=== PATIENT | male | born 1965 | race Caucasian/White ===

== ENCOUNTER 2016-07-28 20:11 | Emergency (ER) | payer OTHER ==
[~2016-07-28] VITALS: Ht 182.9 cm; Wt 152.0 kg
[~2016-07-28 20:11] MED LIST: CITA40TA12 PO; CLINDAMYCIN HCL1 GM PO; CLON0.5T PO; DULO20CA PO; ENOX30DI SQ; FURO20TA3 PO; GABA-586 PO; GABA25PO15 MC; HYDR-971 PO; INSU100I27 SQ; INSU100V8 SQ; LISI-334 PO; LISI10TA2 PO; LISI1POW MC; LISI1POW PO; OXYC10TA PO; OXYC20TA PO; PRAZ2CAP2 PO; PROVENTIL HFA6.7 GM IH; QUET300T6 PO; RIVA10TA PO; RIVA15TA PO; TRAM50TA PO; WARF1TAB7 PO
[2016-07-28 20:53] LABS: BASO % 1 % (0-3); EOS % 3 % (0-3); HEMATOCRIT 42.4 % (39.0-53.0); HEMOGLOBIN 14.2 g/dL (13.0-17.5); LYMPH # 2.8 x10^3/uL (1.0-4.8); LYMPH % 35 % (24-48); MEAN CORPUSCULAR HEMOGLOBIN 28 pg (25-35); MEAN CORPUSCULAR HGB CONC 33 g/dL (31-37); MEAN CORPUSCULAR VOLUME 84 fL (79-100); MONO % 9 % (0-9); NEUT % 53 % (31-73); PLATELET COUNT 258 x10^3/uL (140-400); RED BLOOD COUNT 5.06 x10^6/uL (4.30-5.70); RED CELL DISTRIBUTION WIDTH 17.3 % (11.5-14.5); WHITE BLOOD COUNT 8.1 x10^3/uL (4.0-11.0)
[2016-07-28] MEDS ORDERED: MORPHINE SULFATE 4 MG/ML DISP.SYRIN. IV/SQ PRN (21:00)
[2016-07-28 21:03] LABS: INR 1.7 (0.8-1.1); PROTHROMBIN TIME PATIENT 18.6 SEC (11.7-14.0)
[2016-07-28 21:10] LABS: CALCIUM 9.1 mg/dL (8.5-10.1); CREATININE 1.3 mg/dL (0.7-1.3); GFR 57.7; MAGNESIUM 1.9 mg/dL (1.8-2.4); POTASSIUM 4.2 mmol/L (3.5-5.1)
--- NOTE | 2016-07-28 21:13 | PHYS DOC ---
Past Medical History Past Medical History: Anxiety, DVT, Hypertension, Kidney Infection, [place], Vascular Disease Additional Past Medical Histor: TBI; PTSD; neuropathy Past Surgical History: Cholecystectomy, Knee Replacement, Other Additional Past Surgical Histo: hernia, Alcohol Use: None Drug Use: None Adult General Chief Complaint Chief Complaint: CHEST PAIN HPI HPI Patient is a 51 year old male who presents by EMS for anxiety worsening throughout today leading to difficulty breathing, general shakiness and chest tightness. States he has had these symptoms with prior anxiety attacks. States these symptoms are different that prior pain associated with CAD/[place]. He no longer has prn Valium that he usually takes for this. He had one nitroglycerin by EMS and his symptoms are improving. He no longer has difficulty breathing or chest tightness, but he still has remaining anxiety. He was prior in his normal health. Started at rest. He denies cough, fever or chills, hemoptysis, leg pain or swelling, abdominal pain, lightheadedness, dizziness, vision changes, Review of Systems Review of Systems Constitutional: Denies fever or chills [] Eyes: Denies change in visual acuity, redness, or eye pain [] HENT: Denies nasal congestion or sore throat [] Respiratory: Denies cough [] Cardiovascular: No additional information not addressed in HPI [] GI: Denies abdominal pain, nausea, vomiting, bloody stools or diarrhea [] : Denies dysuria or hematuria [] Musculoskeletal: Denies back pain or joint pain [] Integument: Denies rash or skin lesions [] Neurologic: Denies headache, focal weakness or sensory changes [] Endocrine: Denies polyuria or polydipsia [] Current Medications Current Medications Current Medications Medications (Trade) Dose Ordered Sig/Krys Start Time Stop Time Status Last Admin Dose Admin Diazepam (Valium) 2 mg 1X ONCE 07/28/16 21:15 07/28/16 21:16 DC Morphine Sulfate 4 mg PRN Q15MIN PRN 07/28/16 21:00 07/29/16 20:59 Allergies Allergies Allergies Coded Allergies Type Severity Reaction Last Updated Verified Sulfa (Sulfonamide Antibiotics) Allergy Severe sob 03/18/16 Yes ketorolac tromethamine Allergy Intermediate hives 03/18/16 Yes I S O L A T I O N *CONTACT* Allergy Unknown 06/15/15 Yes Physical Exam Physical Exam Constitutional: Well developed, well nourished, no acute distress, non-toxic appearance. [] HENT: Normocephalic, atraumatic, bilateral external ears normal, oropharynx moist, no oral exudates, nose normal. [] Eyes: PERRLA, EOMI, conjunctiva normal, no discharge. [] Neck: Normal range of motion, no tenderness, supple, no stridor. [] Cardiovascular:Heart rate regular rhythm, no murmur [] Lungs & Thorax: Bilateral breath sounds clear to auscultation [] Abdomen: Bowel sounds normal, soft, no tenderness, no masses, no pulsatile masses. [] Skin: Warm, dry, no erythema, no rash. [] Back: No tenderness, no CVA tenderness. [] Extremities: No tenderness, no cyanosis, no clubbing, ROM intact, no edema. [] Neurologic: Alert and oriented X 3, normal motor function, normal sensory function, no focal deficits noted. [] Psychologic: Affect normal, judgement normal, mood normal. [] Current Patient Data Vital Signs Vital Signs Date Time Temp Pulse Resp B/P Pulse Ox O2 Delivery O2 Flow Rate FiO2 07/28/16 20:18 98.1 108 18 123/66 94 Room Air 98.1 Lab Values Laboratory Tests Test 07/28/16 20:20 07/28/16 21:18 White Blood Count 8.1x10^3/uL (4.0-11.0) Red Blood Count 5.06x10^6/uL (4.30-5.70) Hemoglobin 14.2g/dL (13.0-17.5) Hematocrit 42.4% (39.0-53.0) Mean Corpuscular Volume 84fL (79-100) Mean Corpuscular Hemoglobin 28pg (25-35) Mean Corpuscular Hemoglobin Concent 33g/dL (31-37) Red Cell Distribution Width 17.3% (11.5-14.5) H Platelet Count 258x10^3/uL (140-400) Neutrophils (%) (Auto) 53% (31-73) Lymphocytes (%) (Auto) 35% (24-48) Monocytes (%) (Auto) 9% (0-9) Eosinophils (%) (Auto) 3% (0-3) Basophils (%) (Auto) 1% (0-3) Neutrophils # (Auto) 4.3x10^3uL (1.8-7.7) Lymphocytes # (Auto) 2.8x10^3/uL (1.0-4.8) Monocytes # (Auto) 0.7x10^3/uL (0.0-1.1) Eosinophils # (Auto) 0.2x10^3/uL (0.0-0.7) Basophils # (Auto) 0.0x10^3/uL (0.0-0.2) Prothrombin Time 18.6SEC (11.7-14.0) H Prothrombin Time INR 1.7 (0.8-1.1) H Sodium Level 143mmol/L (136-145) Potassium Level 4.2mmol/L (3.5-5.1) Chloride Level 105mmol/L (98-107) Carbon Dioxide Level 26mmol/L (21-32) Anion Gap 12 (6-14) Blood Urea Nitrogen 16mg/dL (8-26) Creatinine 1.3mg/dL (0.7-1.3) Estimated GFR (Cockcroft-Gault) 57.7 Glucose Level 136mg/dL (70-99) H Calcium Level 9.1mg/dL (8.5-10.1) Magnesium Level 1.9mg/dL (1.8-2.4) Troponin I Quantitative < 0.017ng/mL (0.000-0.055) GU-Ppm-K-Type Natriuretic Peptide 18pg/mL (0-124) Urine Opiates Screen Neg (NEG) Urine Methadone Screen Neg (NEG) Urine Barbiturates Neg (NEG) Urine Phencyclidine Screen Neg (NEG) Urine Amphetamine/Methamphetamine Neg (NEG) Urine Benzodiazepines Screen Neg (NEG) Urine Cocaine Screen Neg (NEG) Urine Cannabinoids Screen Neg (NEG) Urine Ethyl Alcohol Neg (NEG) Laboratory Tests 07/28/16 20:20 Laboratory Tests 07/28/16 20:20 EKG EKG EKG as interpreted by me as sinus tachycardia, rate 109, no ST-T changes, normal intervals, no ectopy Radiology/Procedures Radiology/Procedures Chest xray as interpreted by me with no acute cardiopulmonary disease process Course & Med Decision Making Course & Med Decision Making Pertinent Labs and Imaging studies reviewed. (See chart for details) Workup is unremarkable. He feels better after medications and would like to go home. Encouraged close follow up with his PCP, Psychiatrist, and Atm Mechanic. Return precautions given. He understands and agrees with plan. Dragon Disclaimer Dragon Disclaimer This electronic medical record was generated, in whole or in part, using a voice recognition dictation system. Departure Departure Impression: Primary Impression: Anxiety Additional Impression: Chest pain Disposition: HOME, SELF-CARE Condition: STABLE Referrals: NO PCP (PCP) Patient Instructions: Anxiety and Panic Attacks, [id number] Additional Instructions: Follow up with your primary care doctor and psychiatrist. Return for any concerns. Problem Qualifiers Additional Impression: Chest pain Chest pain type: unspecified Qualified Code: R07.9 - Chest pain, unspecified Swapnil TESFAYE MD Jul 28, 2016 21:13
[2016-07-28] MEDS ORDERED: DIAZEPAM 2 MG TABLET PO ONE (21:15)
[2016-07-28 21:31] LABS: BARBITURATES NEG (NEG); BENZODIAZEPINES NEG (NEG); CANNABINOIDS NEG (NEG); COCAINE NEG (NEG); ETHANOL, URINE NEG (NEG); METHADONE NEG (NEG); OPIATES NEG (NEG); PHENCYCLIDINE NEG (NEG)
[2016-07-28 22:06] VITALS: BP 111/61
--- NOTE | 2016-07-29 06:27 | EKG ---
[facility] [address] [place] [address] Test Date: 2016-07-28 Test Time: 20:19:36 Pat Name: LEONEL GODWIN Department: Room: Gender: Assistant Pastry Chef: : 1965 Requested By: Swapnil TESFAYE Order Number: [id number] Reading MD: Gisela Live Measurements Intervals [place] Rate: 109 P: 28 [place]: 122 QRS: 26 QRSD: 90 T: 34 QT: 330 QTc: 446 Interpretive Statements SINUS TACHYCARDIA OTHERWISE NORMAL ECG Electronically Signed On 07-31-2016 20:10:11 COUNTER MAKER by Gisela Live
--- NOTE | 2016-07-29 07:36 | RAD ---
EXAM: Chest 2 views. HISTORY: Left chest pain and shortness of breath. COMPARISON: 06/14/2015. FINDINGS: Frontal and lateral views of the chest are obtained. Embolization coils project over the left lower lobe. There are no confluent infiltrates. There is no pneumothorax or pleural effusion. The heart is not enlarged. IMPRESSION: 1. No confluent infiltrates. Embolization coils in the left lower lobe.
== END 2016-07-28 21:55 | disposition home or self-care (01) ==
LOC: ER 20:11
DX: F41.9 Anxiety disorder, unspecified (principal); R07.89 Other chest pain; I10 Essential (primary) hypertension; I25.2 Old myocardial infarction; F43.10 Post-traumatic stress disorder, unspecified; G62.9 Polyneuropathy, unspecified; Z90.49 Acquired absence of other specified parts of digestive tract; Z96.659 Presence of unspecified artificial knee joint; Z87.820 Personal history of traumatic brain injury; Z88.2 Allergy status to sulfonamides; Z91.041 Radiographic dye allergy status; Z86.718 Personal history of other venous thrombosis and embolism; Z88.8 Allergy status to other drugs, medicaments and biological substances
CPT/HCPCS: 36415; 71020; 80048; 83735; 83880; 84484; 85027; 85610; 93005; 99285; G0481

== ENCOUNTER 2016-07-28 23:00 | Emergency (ER) | payer OTHER ==
[~2016-07-28] VITALS: Ht 182.9 cm; Wt 152.0 kg
[2016-07-28] MEDS ORDERED: LORAZEPAM 1 MG TABLET. PO ONE (23:30)
--- NOTE | 2016-07-28 23:35 | PHYS DOC ---
Past Medical History Past Medical History: Anxiety, CAD, COPD, Depression, Diabetes-Type II, DVT, Hypertension, Kidney Infection, [place], Seizure, Vascular Disease Additional Past Medical Histor: TBI; PTSD; neuropathy, SI attempts in past, meth abuse Past Surgical History: Appendectomy, Cholecystectomy, Knee Replacement, Other Additional Past Surgical Histo: hernia, left knee Alcohol Use: None Drug Use: Methamphetamine Social History Narrative: meth abuse in past, clean for 3 weeks Adult General Chief Complaint Chief Complaint: SUICDAL IDEATION HPI HPI This is a 51-year-old male who presents with ongoing panic attacks and suicidal thoughts. He states he has overdose in the past and is now having thoughts to harm himself again. Patient was just seen earlier today with ongoing chest pain and panic attack and had a full workup that was essentially unremarkable and was given Valium with minimal to no relief. Currently the patient states he decided to check back in because he is afraid he would harm himself. Currently he states his chest pain has improved but he is still having significant anxiety and panic attack. Review of Systems Review of Systems Constitutional: Denies fever or chills [] Eyes: Denies change in visual acuity, redness, or eye pain [] HENT: Denies nasal congestion or sore throat [] Respiratory: Denies cough or shortness of breath [] Cardiovascular: No additional information not addressed in HPI [] GI: Denies abdominal pain, nausea, vomiting, bloody stools or diarrhea [] : Denies dysuria or hematuria [] Musculoskeletal: Denies back pain or joint pain [] Integument: Denies rash or skin lesions [] Neurologic: Denies headache, focal weakness or sensory changes [] Endocrine: Denies polyuria or polydipsia [] Current Medications Current Medications Current Medications Medications (Trade) Dose Ordered Sig/Krys Start Time Stop Time Status Last Admin Dose Admin Lorazepam (Ativan) 0.5 mg 1X ONCE 07/28/16 23:30 07/28/16 23:31 DC 07/28/16 23:34 0.5 MG Allergies Allergies Allergies Coded Allergies Type Severity Reaction Last Updated Verified Sulfa (Sulfonamide Antibiotics) Allergy Severe sob 03/18/16 Yes ketorolac tromethamine Allergy Intermediate hives 03/18/16 Yes I S O L A T I O N *CONTACT* Allergy Unknown 06/15/15 Yes Physical Exam Physical Exam Constitutional: Well developed, well nourished, mild distress, non-toxic appearance. [] HENT: Normocephalic, atraumatic, bilateral external ears normal, oropharynx moist, no oral exudates, nose normal. [] Eyes: PERRLA, EOMI, conjunctiva normal, no discharge. [] Neck: Normal range of motion, no tenderness, supple, no stridor. [] Cardiovascular:Heart rate regular rhythm, no murmur [] Lungs & Thorax: Bilateral breath sounds clear to auscultation [] Abdomen: Bowel sounds normal, soft, no tenderness, no masses, no pulsatile masses. [] Skin: Warm, dry, no erythema, no rash. [] Back: No tenderness, no CVA tenderness. [] Extremities: No tenderness, no cyanosis, no clubbing, ROM intact, no edema. [] Neurologic: Alert and oriented X 3, normal motor function, normal sensory function, no focal deficits noted. [] Psychologic: Affect normal, judgement normal, mood anxious. [] Current Patient Data Vital Signs Vital Signs Date Time Temp Pulse Resp B/P Pulse Ox O2 Delivery O2 Flow Rate FiO2 07/29/16 01:05 104 16 98/52 97 Room Air 07/28/16 23:24 98.0 98.0 EKG EKG [] Radiology/Procedures Radiology/Procedures [] Course & Med Decision Making Course & Med Decision Making Pertinent Labs and Imaging studies reviewed. (See chart for details) This 50-year-old male who's had a full workup already earlier in the department will receive a full psychiatric assessment from our psychiatric assessment team. I will give him a low-dose of Ativan for his ongoing panic attack. There is no indication at this time to repeat any laboratory testing as he was just discharged with a full workup earlier several hours ago. Psychiatric assessment team agreed that the patient is suicidal and will arrange transport to [facility] for suicidal intervention. [facility] transport was arranged and the patient was discharged without incident after assessment was arranged at that facility for his ongoing suicidal ideation. Dragon Disclaimer Dragon Disclaimer This electronic medical record was generated, in whole or in part, using a voice recognition dictation system. Departure Departure Impression: Primary Impression: Suicidal behavior Disposition: 02 TRANSFER T-[facility] Admitting Physician: Other Condition: STABLE Referrals: NO PCP (PCP) Patient Instructions: Suicidal Feelings, How to Help Yourself Additional Instructions: Please proceed directly to your psychiatric facility to receive help for your suicidal thoughts. Return to the ER immediately if you develop any new symptoms. TONY HOWARD DO Jul 28, 2016 23:35
[2016-07-29 01:05] VITALS: BP 98/52
== END 2016-07-29 01:39 | disposition short-term general hospital (02) ==
LOC: ER 23:00
DX: R45.851 Suicidal ideations (principal); R07.9 Chest pain, unspecified; F41.9 Anxiety disorder, unspecified; I25.10 Atherosclerotic heart disease of native coronary artery without angina pectoris; J44.9 Chronic obstructive pulmonary disease, unspecified; F32.9 Major depressive disorder, single episode, unspecified; E11.9 Type 2 diabetes mellitus without complications; I10 Essential (primary) hypertension; I25.2 Old myocardial infarction; E11.40 Type 2 diabetes mellitus with diabetic neuropathy, unspecified; Z96.659 Presence of unspecified artificial knee joint; Z90.49 Acquired absence of other specified parts of digestive tract; F43.10 Post-traumatic stress disorder, unspecified; Z86.718 Personal history of other venous thrombosis and embolism; F15.10 Other stimulant abuse, uncomplicated; Z87.820 Personal history of traumatic brain injury; Z88.2 Allergy status to sulfonamides; Z88.8 Allergy status to other drugs, medicaments and biological substances; Z91.041 Radiographic dye allergy status
CPT/HCPCS: 99285-25

== ENCOUNTER 2016-08-05 07:48 | Emergency (ER) | payer OTHER ==
[~2016-08-05] VITALS: Ht 182.9 cm; Wt 152.0 kg
[2016-08-05 07:48] VITALS: BP 110/61
[2016-08-05] MEDS ORDERED: MORPHINE SULFATE 10 MG/ML VIAL. IM ONE (08:30)
--- NOTE | 2016-08-05 08:38 | PHYS DOC ---
Past Medical History Past Medical History: Anxiety, CAD, COPD, Depression, Diabetes-Type II, DVT, Hypertension, Kidney Infection, [place], Seizure, Vascular Disease Additional Past Medical Histor: TBI; PTSD; neuropathy, SI attempts in past, meth abuse, UMBILICAL HERNIA Past Surgical History: Appendectomy, Cholecystectomy, Knee Replacement, Other Additional Past Surgical Histo: hernia, left knee Alcohol Use: None Drug Use: Methamphetamine Social History Narrative: 30 DAYS CLEAN OF 08/05/16 Adult General Chief Complaint Chief Complaint: ABDOMINAL PAIN HPI HPI Patient is a 51 year old male with history of diabetes type 2, hypertension, DVTs, depression, ventral hernia with multiple surgeries for ventral hernia repair, who presents today with 6/10 abdominal pain over his ventral hernia that began yesterday. Patient denies any nausea vomiting. Patient states this is a chronic problem. He states he normally takes oxycodone but he is out of oxycodone. He states he normally follows up with [facility] in [place]. Patient states he is currently staying at the [facility]. He is requesting something for pain. Review of Systems Review of Systems Constitutional: Denies fever or chills [] Eyes: Denies change in visual acuity, redness, or eye pain [] HENT: Denies nasal congestion or sore throat [] Respiratory: Denies cough or shortness of breath [] Cardiovascular: No additional information not addressed in HPI [] GI: Abdominal pain : Denies dysuria or hematuria [] Musculoskeletal: Denies back pain or joint pain [] Integument: Denies rash or skin lesions [] Neurologic: Denies headache, focal weakness or sensory changes [] Endocrine: Denies polyuria or polydipsia [] Current Medications Current Medications Current Medications Medications (Trade) Dose Ordered Sig/[facility] Start Time Stop Time Status Last Admin Dose Admin Morphine Sulfate 5 mg 1X ONCE 08/05/16 08:30 08/05/16 08:31 DC 08/05/16 09:35 5 MG Allergies Allergies Allergies Coded Allergies Type Severity Reaction Last Updated Verified Sulfa (Sulfonamide Antibiotics) Allergy Severe sob 03/18/16 Yes ketorolac tromethamine Allergy Intermediate hives 03/18/16 Yes Physical Exam Physical Exam Constitutional: Well developed, well nourished, no acute distress, non-toxic appearance. [] HENT: Normocephalic, atraumatic, bilateral external ears normal, oropharynx moist, no oral exudates, nose normal. [] Eyes: PERRLA, EOMI, conjunctiva normal, no discharge. [] Neck: Normal range of motion, no tenderness, supple, no stridor. [] Cardiovascular:Heart rate regular rhythm, no murmur [] Lungs & Thorax: Bilateral breath sounds clear to auscultation [] Abdomen: Obese abdomen, multiple incisions noted midline abdomen, ventral hernia noted on the left abdomen, the hernia is easily reducible. It only occurs when patient is sitting up. Bowel sounds normal, soft, no tenderness, no masses, no pulsatile masses. [] Skin: Warm, dry, no erythema, no rash. [] Back: No tenderness, no CVA tenderness. [] Extremities: No tenderness, no cyanosis, no clubbing, ROM intact, no edema. [] Neurologic: Alert and oriented X 3, normal motor function, normal sensory function, no focal deficits noted. [] Psychologic: Affect normal, judgement normal, mood normal. [] Current Patient Data Vital Signs Vital Signs Date Time Temp Pulse Resp B/P Pulse Ox O2 Delivery O2 Flow Rate FiO2 08/05/16 07:48 97.9 110 18 110/61 96 Room Air 97.9 Lab Values Laboratory Tests Test 08/05/16 08:50 White Blood Count 7.5x10^3/uL (4.0-11.0) Red Blood Count 5.51x10^6/uL (4.30-5.70) Hemoglobin 15.3g/dL (13.0-17.5) Hematocrit 46.0% (39.0-53.0) Mean Corpuscular Volume 83fL (79-100) Mean Corpuscular Hemoglobin 28pg (25-35) Mean Corpuscular Hemoglobin Concent 33g/dL (31-37) Red Cell Distribution Width 17.3% (11.5-14.5) H Platelet Count 302x10^3/uL (140-400) Neutrophils (%) (Auto) 63% (31-73) Lymphocytes (%) (Auto) 26% (24-48) Monocytes (%) (Auto) 8% (0-9) Eosinophils (%) (Auto) 2% (0-3) Basophils (%) (Auto) 1% (0-3) Neutrophils # (Auto) 4.7x10^3uL (1.8-7.7) Lymphocytes # (Auto) 2.0x10^3/uL (1.0-4.8) Monocytes # (Auto) 0.6x10^3/uL (0.0-1.1) Eosinophils # (Auto) 0.2x10^3/uL (0.0-0.7) Basophils # (Auto) 0.1x10^3/uL (0.0-0.2) Sodium Level 138mmol/L (136-145) Potassium Level 4.3mmol/L (3.5-5.1) Chloride Level 105mmol/L (98-107) Carbon Dioxide Level 24mmol/L (21-32) Anion Gap 9 (6-14) Blood Urea Nitrogen 12mg/dL (8-26) Creatinine 1.0mg/dL (0.7-1.3) Estimated GFR (Cockcroft-Gault) 78.2 BUN/Creatinine Ratio 12 (6-20) Glucose Level 111mg/dL (70-99) H Calcium Level 9.2mg/dL (8.5-10.1) Total Bilirubin 0.3mg/dL (0.2-1.0) Aspartate Amino Transferase (AST) 20U/L (15-37) Alanine Aminotransferase (ALT) 23U/L (16-63) Alkaline Phosphatase 92U/L (46-116) Total Protein 7.7g/dL (6.4-8.2) Albumin 3.3g/dL (3.4-5.0) L Albumin/Globulin Ratio 0.8 (1.0-1.7) L Lipase 140U/L (73-393) Laboratory Tests 08/05/16 08:50 Laboratory Tests 08/05/16 08:50 EKG EKG [] Radiology/Procedures Radiology/Procedures [] Course & Med Decision Making Course & Med Decision Making Pertinent Labs and Imaging studies reviewed. (See chart for details) Patient with history of ventral hernia with multiple surgeries for ventral hernia repair, who presents today with 6/10 abdominal pain over his ventral hernia that began yesterday,patient states this is a chronic problem and he is out of oxycodone. Informed patient I will not give him any oxycodone from the ED today because he is not following up with a primary care doctor or general surgeon. Also narcotics will increase his risk of constipation worsening his condition. His labs are negative, acute abdominal series has no acute findings. Patient was discharged with dicyclomine and Compazine. I did provide him a general surgeon for follow-up as soon as possible. Doctor's list was also provided. Provided return precautions. Discharged in stable condition. Dragon Disclaimer Dragon Disclaimer This electronic medical record was generated, in whole or in part, using a voice recognition dictation system. Departure Departure Impression: Primary Impression: Abdominal pain Additional Impression: Ventral hernia, recurrent Disposition: HOME, SELF-CARE Condition: STABLE Referrals: NO PCP (PCP) ANA MARIA FLORES MD See him in one week Patient Instructions: Hernia Additional Instructions: You were seen for chronic abdominal pain due to a ventral hernia. We highly recommend you follow-up with the general surgeon provided as soon as possible. Avoid taking narcotics because they will cause you constipation and worsen your pain. Scripts Prochlorperazine Maleate (Compazine)10 Mg [id number] Mg PO TID PRN NAUSEA #20 TAB Prov:BOONE LOMBARDI APRN 08/05/16 Dicyclomine Hcl 20 Mg Tablet1 Tab PO TID #30 TAB Ref 1 Prov:BOONE LOMBARDI APRN 08/05/16 Problem Qualifiers Primary Impression: Abdominal pain Abdominal location: unspecified location Qualified Code: R10.9 - Unspecified abdominal pain BOONE LOMBARDI APRN Aug 05, 2016 08:38
[2016-08-05 09:15] LABS: CALCIUM 9.2 mg/dL (8.5-10.1); POTASSIUM 4.3 mmol/L (3.5-5.1)
[2016-08-05 09:20] LABS: ALBUMIN 3.3 g/dL (3.4-5.0); ALBUMIN/GLOBULIN RATIO 0.8 (1.0-1.7); GFR 78.2; TOTAL BILIRUBIN 0.3 mg/dL (0.2-1.0); TOTAL PROTEIN 7.7 g/dL (6.4-8.2)
[2016-08-05 09:23] LABS: BASO # 0.1 x10^3/uL (0.0-0.2); BASO % 1 % (0-3); EOS % 2 % (0-3); HEMOGLOBIN 15.3 g/dL (13.0-17.5); LYMPH % 26 % (24-48); MEAN CORPUSCULAR HEMOGLOBIN 28 pg (25-35); MEAN CORPUSCULAR HGB CONC 33 g/dL (31-37); MEAN CORPUSCULAR VOLUME 83 fL (79-100); MONO % 8 % (0-9); NEUT % 63 % (31-73); PLATELET COUNT 302 x10^3/uL (140-400); RED BLOOD COUNT 5.51 x10^6/uL (4.30-5.70); RED CELL DISTRIBUTION WIDTH 17.3 % (11.5-14.5); WHITE BLOOD COUNT 7.5 x10^3/uL (4.0-11.0)
--- NOTE | 2016-08-05 09:33 | RAD ---
Acute abdomen series with chest, 3 views, 08/05/2016: History: Abdominal pain, hernia Comparison is made to a study from 08/25/2015. The abdominal gas pattern is unremarkable without evidence of obstruction. No free air is seen in the abdomen. There are surgical clips in the right upper quadrant. Numerous radiopacities overlying the lower abdomen are presumably related to a surgical mesh from a prior hernia repair. An inferior vena cava filter is in place at the L2-3 level. There is no evidence of organomegaly. Scattered degenerative changes are evident in the spine. The heart size and pulmonary vascularity are normal. No pulmonary infiltrates are seen. Embolization coils are again noted in the left lower chest. IMPRESSION: No acute abdominal abnormality is detected.
[2016-08-05] MEDS ORDERED: PROC10TA57 PO (09:48)
[2016-08-05] MEDS ORDERED: DICY20TA3 PO (09:48)
== END 2016-08-05 10:00 | disposition home or self-care (01) ==
LOC: ER 07:48
DX: K43.2 Incisional hernia without obstruction or gangrene (principal); E66.9 Obesity, unspecified; E11.40 Type 2 diabetes mellitus with diabetic neuropathy, unspecified; F41.9 Anxiety disorder, unspecified; I11.9 Hypertensive heart disease without heart failure; I25.10 Atherosclerotic heart disease of native coronary artery without angina pectoris; J44.9 Chronic obstructive pulmonary disease, unspecified; F32.9 Major depressive disorder, single episode, unspecified; I25.2 Old myocardial infarction; F43.10 Post-traumatic stress disorder, unspecified; F15.10 Other stimulant abuse, uncomplicated; Z90.49 Acquired absence of other specified parts of digestive tract; Z96.652 Presence of left artificial knee joint; Z87.820 Personal history of traumatic brain injury; Z86.718 Personal history of other venous thrombosis and embolism; Z68.42 Body mass index [BMI] 45.0-49.9, adult; Z88.8 Allergy status to other drugs, medicaments and biological substances; Z88.2 Allergy status to sulfonamides
CPT/HCPCS: 36415; 74022; 80053; 83690; 85027; 96372; 99285; J2270

== ENCOUNTER 2016-08-30 12:11 | Emergency (ER) | payer OTHER ==
[~2016-08-30] VITALS: Ht 182.9 cm; Wt 149.7 kg
[~2016-08-30 12:11] MED LIST changes: +DICY20TA3 PO; +PROC10TA57 PO
[2016-08-30] MEDS ORDERED: HYDROCODONE/APAP 5/325MG TABLET. PO ONE (13:00)
--- NOTE | 2016-08-30 13:37 | PHYS DOC ---
Past Medical History Past Medical History: Anxiety, CAD, COPD, Depression, Diabetes-Type II, DVT, Hypertension, Kidney Infection, MS, Seizure, Vascular Disease Additional Past Medical Histor: TBI; PTSD; neuropathy, SI attempts in past, meth abuse, UMBILICAL HERNIA Past Surgical History: Appendectomy, Cholecystectomy, Knee Replacement, Other Additional Past Surgical Histo: hernia, left knee Alcohol Use: None Drug Use: Methamphetamine Social History Narrative: pt denies 08/30/16, last use 2 months ago Adult General Chief Complaint Chief Complaint: LOWER EXTREMITY SWELLING HPI HPI Patient is a 51 year old male who presents with left leg pain and swelling over the past few days. States is achy, constant pain to medial leg and calf. He has been off of Xarelto for 1 month due to not following up with his PCP to get refill; he is taking this for prior DVT. She also mentions a small exertion that is formed on each ya. He denies injury to areas, fever or chills , discoloration otherwise. He denies dyspnea, orthopnea, chest pain, cough, hemoptysis, palpitations, lightheadedness. Review of Systems Review of Systems Constitutional: Denies fever or chills [] Eyes: Denies change in visual acuity, redness, or eye pain [] HENT: Denies nasal congestion or sore throat [] Respiratory: Denies cough or shortness of breath [] Cardiovascular: No additional information not addressed in HPI [] GI: Denies abdominal pain, nausea, vomiting, bloody stools or diarrhea [] : Denies dysuria or hematuria [] Musculoskeletal: Denies back pain or joint pain [] Integument: Denies rash or skin lesions [] Neurologic: Denies headache, focal weakness or sensory changes [] Endocrine: Denies polyuria or polydipsia [] Current Medications Current Medications Current Medications Medications (Trade) Dose Ordered Sig/Krys Start Time Stop Time Status Last Admin Dose Admin Acetaminophen/ Hydrocodone Bitart (Lortab 5/325) 2 tab 1X ONCE 08/30/16 13:00 08/30/16 13:01 DC 08/30/16 13:13 2 TAB Allergies Allergies Allergies Coded Allergies Type Severity Reaction Last Updated Verified Sulfa (Sulfonamide Antibiotics) Allergy Severe sob 03/18/16 Yes ketorolac tromethamine Allergy Intermediate hives 03/18/16 Yes Physical Exam Physical Exam Constitutional: Well developed, well nourished, no acute distress, non-toxic appearance. [] HENT: Normocephalic, atraumatic, bilateral external ears normal, oropharynx moist, nose normal. [] Eyes: PERRLA, EOMI. [] Neck: Normal range of motion, supple. [] Cardiovascular:Heart rate regular rhythm [] Lungs & Thorax: Bilateral breath sounds clear to auscultation [] Abdomen: Bowel sounds normal, soft, no tenderness. [] Skin: Warm, dry, no erythema, no rash. [] Back: Normal ROM. [] Extremities: Bilateral lower extremities with dark skin color changes concerning for chronic venous stasis, has L>R 1+ pitting edema, bilateral L>R tenderness, right proximal ya with 1.5cm circular eschar and left proximal ya with 1cm circular eschar without surrounding redness/induration/crepitance/ fluctuance/warmth; equal 2+ dp pulses; sensation intact to light touch bilaterally; normal ROM at all joints, normal strength Neurologic: Alert and oriented X 3, normal motor function, normal sensory function, no focal deficits noted. [] Psychologic: Affect normal, judgement normal, mood normal. [] Current Patient Data Vital Signs Vital Signs Date Time Temp Pulse Resp B/P Pulse Ox O2 Delivery O2 Flow Rate FiO2 08/30/16 12:22 97.8 108 20 114/71 97 Room Air 97.8 Radiology/Procedures Radiology/Procedures US venous doppler LLE IMPRESSION: Nonocclusive thrombus in the distal left superficial femoral vein extending into the popliteal vein. This may represent residual thrombus from the previous episode of DVT on 06/14/2015, although recurrent DVT cannot be excluded. DICTATED and SIGNED BY: LISSETT MALONEY MD DATE: 08/30/16 5606 Course & Med Decision Making Course & Med Decision Making Pertinent Labs and Imaging studies reviewed. (See chart for details) Has acute or chronic DVT seen. Will restart xarelto and encouraged him to follow up with his PCP for further therapy and medication refills. Return precautions given. He understands and agrees with plan. Dragon Disclaimer Dragon Disclaimer This electronic medical record was generated, in whole or in part, using a voice recognition dictation system. Departure Departure Impression: Primary Impression: Pain of left lower leg Additional Impression: Chronic deep vein thrombosis (DVT) Disposition: 01 HOME, SELF-CARE Condition: STABLE Referrals: NO PCP (PCP) Patient Instructions: Deep Vein Thrombosis Additional Instructions: Take xarelto for your chronic DVT. Follow up with your primary care doctor within 1 week. Return for any concerns. Scripts Rivaroxaban (Xarelto)20 Mg Cpxzar30 Mg PO DAILY #10 TAB Prov:Swapnil TESFAYE MD 08/30/16 Problem Qualifiers Additional Impression: Chronic deep vein thrombosis (DVT) DVT location: lower extremity Affected thrombotic vein of extremity: unspecified lower extremity distal vein Laterality: left Qualified Code: I82.5Z2 - Chronic embolism and thrombosis of unspecified deep veins of left distal lower extremity Swapnil TESFAYE MD Aug 30, 2016 13:37
[2016-08-30] MEDS ORDERED: RIVA20TA2 PO (13:58)
--- NOTE | 2016-08-30 14:04 | RAD ---
Left lower extremity venous ultrasound, 08/30/2016: History: Left leg pain and swelling Duplex evaluation of the deep veins in the left lower extremity was performed including grayscale, color-flow and spectral Doppler analysis. Comparison is made to a study from 06/14/2015. The left common femoral vein is patent. The left deep femoral vein and the superficial femoral vein in the proximal and mid thigh are unremarkable. In the inferior aspect of the left thigh there is a small amount of nonocclusive mural thrombus extending into the left popliteal vein. The deep veins in the left calf are not well visualized, however, no calf DVT is seen. On the previous study of 06/14/2015 there was thrombus in the proximal left superficial femoral vein which has subsequently resolved. The distal left superficial femoral and popliteal veins were not visualized on the previous study due to the presence of a splint. IMPRESSION: Nonocclusive thrombus in the distal left superficial femoral vein extending into the popliteal vein. This may represent residual thrombus from the previous episode of DVT on 06/14/2015, although recurrent DVT cannot be excluded.
== END 2016-08-30 14:13 | disposition home or self-care (01) ==
LOC: ER 12:11
DX: I82.512 Chronic embolism and thrombosis of left femoral vein (principal); F41.9 Anxiety disorder, unspecified; I25.10 Atherosclerotic heart disease of native coronary artery without angina pectoris; J44.9 Chronic obstructive pulmonary disease, unspecified; F32.9 Major depressive disorder, single episode, unspecified; E11.40 Type 2 diabetes mellitus with diabetic neuropathy, unspecified; I10 Essential (primary) hypertension; I25.2 Old myocardial infarction; F43.10 Post-traumatic stress disorder, unspecified; F15.10 Other stimulant abuse, uncomplicated; Z88.8 Allergy status to other drugs, medicaments and biological substances; Z87.820 Personal history of traumatic brain injury; Z88.2 Allergy status to sulfonamides
CPT/HCPCS: 93971; 99284-25

== ENCOUNTER 2016-09-09 17:31 | Observation (INO) | payer OTHER ==
[~2016-09-09] VITALS: Ht 182.9 cm; Wt 154.2 kg
[~2016-09-09 17:31] MED LIST changes: +ASPIRIN CHEWABLE 81 MG TABLET. PO ONE; +RIVA20TA2 PO
--- NOTE | 2016-09-09 17:58 | PHYS DOC ---
Past Medical History Past Medical History: Anxiety, CAD, COPD, Depression, Diabetes-Type II, DVT, Hypertension, Kidney Infection, ND, Seizure, Vascular Disease Additional Past Medical Histor: TBI; PTSD; neuropathy, SI attempts in past, meth abuse, UMBILICAL HERNIA Past Surgical History: Appendectomy, Cholecystectomy, Knee Replacement, Other Additional Past Surgical Histo: hernia, left knee Alcohol Use: None Drug Use: Methamphetamine Adult General Chief Complaint Chief Complaint: CHEST PAIN HPI HPI 51-year-old male with history of an ND and DVT in the past presents emergency Department with chest pain that he describes as sharp over the left side of his chest. It is nonradiating. It is moderate. He recently is undergoing drug rehabilitation therapy for methamphetamine use. His last drug use was approximately 3 or 4 months ago. He denies cocaine use. He denies any unilateral leg swelling. He is on xerolto for DVT and took his medication yesterday. He otherwise has hypertension and diabetes. Review of systems is negative for hemoptysis, he has mild exertional shortness of breath. Negative for cough fevers chills. He denies abdominal pain nausea or vomiting. He denies diaphoresis. All other review of systems is negative unless otherwise noted in history of present illness. Review of Systems Review of Systems SEE ABOVE. Current Medications Current Medications Current Medications Medications (Trade) Dose Ordered Sig/Krys Start Time Stop Time Status Last Admin Dose Admin Aspirin (Children'S Aspirin) 324 mg 1X ONCE 09/09/16 08:00 09/09/16 17:47 DC Allergies Allergies Allergies Coded Allergies Type Severity Reaction Last Updated Verified Sulfa (Sulfonamide Antibiotics) Allergy Severe sob 03/18/16 Yes ketorolac tromethamine Allergy Intermediate hives 03/18/16 Yes Physical Exam Physical Exam Constitutional: Well developed, well nourished, no acute distress, non-toxic appearance. HENT: Normocephalic, atraumatic, bilateral external ears normal, oropharynx moist, no oral exudates, nose normal. [] Eyes: PERRLA, EOMI, conjunctiva normal, no discharge. [] Neck: Normal range of motion, no tenderness, supple, no stridor. [] Cardiovascular:Heart rate regular rhythm, no murmur Lungs & Thorax: Bilateral breath sounds clear to auscultation [] Abdomen: Bowel sounds normal, soft, no tenderness, no masses, no pulsatile masses. Skin: Warm, dry, no erythema, no rash. [] Back: No tenderness, no CVA tenderness. [] Extremities: No tenderness, no cyanosis, no clubbing, ROM intact, no edema. Neurologic: Alert and oriented X 3, normal motor function, normal sensory function, no focal deficits noted. Psychologic: Affect normal, judgement normal, mood normal. [] Current Patient Data Vital Signs Vital Signs Date Time Temp Pulse Resp B/P Pulse Ox O2 Delivery O2 Flow Rate FiO2 09/09/16 18:54 90 20 119/61 98 Room Air 09/09/16 17:40 98.2 98.2 Lab Values Laboratory Tests Test 09/09/16 17:47 White Blood Count 10.3x10^3/uL (4.0-11.0) Red Blood Count 5.12x10^6/uL (4.30-5.70) Hemoglobin 14.5g/dL (13.0-17.5) Hematocrit 42.6% (39.0-53.0) Mean Corpuscular Volume 83fL (79-100) Mean Corpuscular Hemoglobin 28pg (25-35) Mean Corpuscular Hemoglobin Concent 34g/dL (31-37) Red Cell Distribution Width 17.0% (11.5-14.5) H Platelet Count 351x10^3/uL (140-400) Neutrophils (%) (Auto) 61% (31-73) Lymphocytes (%) (Auto) 26% (24-48) Monocytes (%) (Auto) 9% (0-9) Eosinophils (%) (Auto) 3% (0-3) Basophils (%) (Auto) 1% (0-3) Neutrophils # (Auto) 6.3x10^3uL (1.8-7.7) Lymphocytes # (Auto) 2.7x10^3/uL (1.0-4.8) Monocytes # (Auto) 0.9x10^3/uL (0.0-1.1) Eosinophils # (Auto) 0.3x10^3/uL (0.0-0.7) Basophils # (Auto) 0.1x10^3/uL (0.0-0.2) Sodium Level 138mmol/L (136-145) Potassium Level 4.1mmol/L (3.5-5.1) Chloride Level 104mmol/L (98-107) Carbon Dioxide Level 25mmol/L (21-32) Anion Gap 9 (6-14) Blood Urea Nitrogen 20mg/dL (8-26) Creatinine 1.1mg/dL (0.7-1.3) Estimated GFR (Cockcroft-Gault) 70.0 Glucose Level 148mg/dL (70-99) H Calcium Level 8.9mg/dL (8.5-10.1) Total Bilirubin 0.3mg/dL (0.2-1.0) Direct Bilirubin 0.1mg/dL (0.0-0.2) Aspartate Amino Transferase (AST) 23U/L (15-37) Alanine Aminotransferase (ALT) 27U/L (16-63) Alkaline Phosphatase 81U/L (46-116) Troponin I Quantitative < 0.017ng/mL (0.000-0.055) LO-Ofg-L-Type Natriuretic Peptide 147pg/mL (0-124) H Total Protein 7.3g/dL (6.4-8.2) Albumin 3.1g/dL (3.4-5.0) L Lipase 131U/L (73-393) Laboratory Tests 09/09/16 17:47 Laboratory Tests 09/09/16 17:47 EKG EKG EKG shows sinus rhythm with a regular rate. [place] is leftward. Intervals are within normal limits. ST segments are congruent. [] Radiology/Procedures Radiology/Procedures []X-ray reviewed by myself shows no obvious infiltrate or pneumothorax. Course & Med Decision Making Course & Med Decision Making Pertinent Labs and Imaging studies reviewed. (See chart for details) [] 51-year-old male presenting to the emergency department today with chest pain. Patient reports a history of cardiac stenting. Vital signs afebrile. Otherwise unremarkable. The patient received aspirin prior to arrival. EKG and troponin negative. Chest x-ray shows no obvious infiltrate or pneumothorax. Workup essentially unremarkable in the emergency department. The patient was then admitted for chest pain rule out. I discussed the case with Dr. clancy at 7: 30 PM at which point the patient's care was transferred. Dragon Disclaimer Dragon Disclaimer This electronic medical record was generated, in whole or in part, using a voice recognition dictation system. Departure Departure Impression: Primary Impression: Chest pain Disposition: 09 ADMITTED INPATIENT Admitting Physician: Alicja Clancy Condition: STABLE Referrals: NO PCP (PCP) Problem Qualifiers Primary Impression: Chest pain Chest pain type: unspecified Qualified Code: R07.9 - Chest pain, unspecified AKANKSHA PHELPS MD Sep 09, 2016 17:58
[2016-09-09 18:00] LABS: BASO # 0.1 x10^3/uL (0.0-0.2); BASO % 1 % (0-3); EOS % 3 % (0-3); HEMATOCRIT 42.6 % (39.0-53.0); HEMOGLOBIN 14.5 g/dL (13.0-17.5); LYMPH # 2.7 x10^3/uL (1.0-4.8); LYMPH % 26 % (24-48); MEAN CORPUSCULAR HEMOGLOBIN 28 pg (25-35); MEAN CORPUSCULAR HGB CONC 34 g/dL (31-37); MEAN CORPUSCULAR VOLUME 83 fL (79-100); MONO % 9 % (0-9); NEUT % 61 % (31-73); PLATELET COUNT 351 x10^3/uL (140-400); RED BLOOD COUNT 5.12 x10^6/uL (4.30-5.70); WHITE BLOOD COUNT 10.3 x10^3/uL (4.0-11.0)
[2016-09-09 18:09] LABS: CALCIUM 8.9 mg/dL (8.5-10.1); CREATININE 1.1 mg/dL (0.7-1.3); POTASSIUM 4.1 mmol/L (3.5-5.1)
[2016-09-09 18:15] LABS: ALBUMIN 3.1 g/dL (3.4-5.0); DIRECT BILIRUBIN 0.1 mg/dL (0.0-0.2); TOTAL BILIRUBIN 0.3 mg/dL (0.2-1.0); TOTAL PROTEIN 7.3 g/dL (6.4-8.2)
[2016-09-09] MEDS ORDERED: ONDANSETRON PF 4 MG/2 ML VIAL. IV PRN (19:30)
[2016-09-09] MEDS ORDERED: NITROGLYCERIN SUBLINGUAL 0.4 MG BOTTLE OF 25. SL PRN (19:30)
[2016-09-09] MEDS ORDERED: IOHEXOL 300 MG/ML 75 ML VIAL IV ONE (19:45)
[2016-09-09] MEDS ORDERED: CONTRAST GIVEN MC PRN (19:45)
[2016-09-09] MEDS: MORPHINE SULFATE 2 MG/ML DISP.SYRIN. IV PRN ×2 (20:52→22:36)
--- NOTE | 2016-09-09 21:22 | RAD ---
PROCEDURE CTA of the chest with contrast (pulmonary embolism protocol) 09/09/2016 HISTORY Left-sided chest pain. History of DVT. TECHNIQUE After the intravenous administration 75 cc of Omnipaque 300, contiguous, 0.625 millimeter axial sections were obtained through the chest. 2 millimeter reconstructed axial and 3D MIP sagittal and coronal reconstructed images were obtained. One or more of the following individualized dose reduction techniques were utilized for this study: 1. Automated exposure control. 2. Adjustment of the mA and/or kV according to patient size. 3. Use of iterative reconstruction technique. FINDINGS Comparison study is dated 08/12/2015. There is suboptimal opacification of the pulmonary arteries with contrast limiting the sensitivity of this study. No obvious filling defect is seen. There is no definite CT evidence of pulmonary embolism. Mild atherosclerotic plaque formation is seen involving the thoracic aorta. Scattered coronary artery calcifications are seen. The thoracic aorta tapers normally. The heart is normal in size. Coils are seen within the left lower lobe, unchanged. Dependent subsegmental atelectasis is seen involving both lungs. No area of consolidation is seen. No pneumothorax or pleural effusion is noted. A 2 millimeter calcified granuloma is seen involving the right middle lobe. A 3.9 centimeter rounded mass is seen involving the left adrenal gland which likely represents an adrenal adenoma. It is unchanged. IMPRESSION There is no CT evidence of pulmonary embolism. Electronically signed by: Doug Dillard MD (Sep 09, 2016 21:21:11)
[2016-09-09] MEDS ORDERED: TRAZ100T12 PO (21:42)
[2016-09-09] MEDS ORDERED: QUET50TA5 PO (21:42)
[2016-09-09] MEDS ORDERED: DEXTROSE 50% 25 GM / 50ML DISP.SYRIN. IV PRN (22:15)
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
[2016-09-09] MEDS: QUEtiapine 25 MG TABLET. PO SCH (22:35)
[2016-09-09] MEDS: traZODone 100 MG TABLET. PO SCH (22:35)
[2016-09-09] MEDS: INSULIN DETEMIR 300 UNITS/3 ML INSULN.PEN. SQ SCH (22:41)
[2016-09-09 23:38] VITALS: BP 96/59
[2016-09-10] VITALS (7 sets, daily range): BP systolic 104–135; BP diastolic 54–70
[2016-09-10 05:24] LABS: BASO # 0.1 x10^3/uL (0.0-0.2); BASO % 1 % (0-3); EOS % 4 % (0-3); HEMATOCRIT 41.6 % (39.0-53.0); HEMOGLOBIN 13.6 g/dL (13.0-17.5); LYMPH # 2.5 x10^3/uL (1.0-4.8); LYMPH % 29 % (24-48); MEAN CORPUSCULAR HEMOGLOBIN 28 pg (25-35); MEAN CORPUSCULAR HGB CONC 33 g/dL (31-37); MEAN CORPUSCULAR VOLUME 85 fL (79-100); MONO % 10 % (0-9); NEUT % 56 % (31-73); PLATELET COUNT 286 x10^3/uL (140-400); RED BLOOD COUNT 4.88 x10^6/uL (4.30-5.70); RED CELL DISTRIBUTION WIDTH 17.1 % (11.5-14.5); WHITE BLOOD COUNT 8.6 x10^3/uL (4.0-11.0)
[2016-09-10 06:22] LABS: ALBUMIN 2.9 g/dL (3.4-5.0); ALBUMIN/GLOBULIN RATIO 0.8 (1.0-1.7); CALCIUM 8.6 mg/dL (8.5-10.1); GFR 78.2; POTASSIUM 4.2 mmol/L (3.5-5.1); TOTAL BILIRUBIN 0.2 mg/dL (0.2-1.0); TOTAL PROTEIN 6.7 g/dL (6.4-8.2)
[2016-09-10] MEDS: MORPHINE SULFATE 2 MG/ML DISP.SYRIN. IV PRN (07:35)
[2016-09-10] MEDS: INSULIN ASPART 300 UNITS/3 ML INSULN.PEN SQ SCH ×3 (08:00→17:00)
[2016-09-10] MEDS: CITALOPRAM 20 MG TABLET. PO SCH (08:24)
[2016-09-10] MEDS: FUROSEMIDE 20 MG TABLET PO SCH (08:25)
[2016-09-10] MEDS: LISINOPRIL 10 MG TABLET PO SCH (08:26)
--- NOTE | 2016-09-10 08:52 | ACF ---
Admit Criteria Forms Admit Criteria Forms Admit Criteria Forms CARDIOLOGY GRG Clinical Indications for Admission to Inpatient Care ( Place 'X' for any and all applicable criteria): Hospital admission is needed for appropriate care of the patient because of ANY ONE of the following (1): [ ] I. Hemodynamic instability as indicated by ALL of the following (1)(2)(3) (4)(5) [ ]a) Vital signs or other findings not as expected for chronic patient condition or baseline [ ]b) Instability indicated by ANY ONE of the following: [ ]i) Hypotension [ ]ii) Symptomatic Tachycardia unresponsive to treatment ( e.g., analgesia, fluids, sedation as indicated) [ ]iii) Inadequate perfusion indicated by ANY ONE of the following: [ ] 1) Lactic acidosis (> 2 mmol/L) [ ] 2) New abnormal capillary refill (> 3 seconds) [ ] 3) Reduced urine output [ ] 4) New altered mental status [ ]iv) Orthostatic vital sign changes unresponsive to treatment (e.g., fluids) [ ]v) IV inotropic or vasopressor medication required to maintain adequate blood pressure or perfusion [ ] II. Severe heart failure as indicated by ANY ONE of the following(17)(18) [ ]a) Respiratory distress [ ]b) Hypotension [ ]c) Anasarca (refractory to outpatient therapy) [ ]d) Cardiac arrhythmias of immediate concern [ ]e) Myocardial ischemia [ ] III. Cardiac arrhythmias or findings of immediate concern indicated by ANY ONE of the following (19)(20): [ ] a) Heart rhythms that are inherently dangerous or unstable indicated by ANY ONE of the following (21)(22)(23): [ ] i) Resuscitated ventricular fibrillation or cardiac arrest [ ] ii) Ventricular escape rhythm [ ] iii) Sustained ventricular tachycardia (30 seconds or more of ventricular rhythm at greater than 100 beats per minute) [ ] iv) Nonsustained ventricular tachycardia and ANY ONE of the following: [ ] 1) Suspected cardiac ischemia as cause or consequence of ventricular tachycardia [ ] 2) In setting of acute myocarditis [ ] b) Unstable cardiac conduction defects indicated by ANY ONE of the following(23)(24)(25) [ ] i) Type II second-degree atrioventricular block [ ]ii) Third-degree atrioventricular block [ ]iii) New-onset left bundle branch block with suspected myocardial ischemia [ ]c) Any heart rhythm and ANY ONE of the following (21)(22)(26)(27) (28) [ ] i) Continuous long-term ECG monitoring needed (e.g., initiation of drug requiring monitoring for more than 24 hours) [ ] ii) Patient has automatic implanted cardioverter defibrillator that is repeatedly firing, malfunctioning, or in need of immediate adjustment of settings beyond the scope of ambulatory or observation care [ ]d) Heart rhythms of concern due to ANY ONE of the following: [ ] i) Hypotension [ ] ii) Respiratory distress [ ] iii) Association with other significant symptoms (e.g., bradycardia with syncope or ongoing dizziness, supraventricular tachycardia with chest pain (14)(15)(17) [ ] IV. Monitoring for cardiac contusion beyond the scope of observation care needed [A](30)(31)(32) [ ] V. Surgical or device complication (e.g., valve replacement complication , pacemaker dysfunction) (35)(41)(44)(45)(46) [ ] . Inpatient palliative care needed. [B](49) Also use Inpatient Palliative Care Criteria [ ] VII. Nonbacterial thrombotic (marantic) endocarditis (36)(43)(47)(48) [X] VIII. Cardiology condition, symptom, or finding for which emergency and observation care has failed or are not considered appropriate. [ ] IX. Acute valvular disease requiring inpatient as indicated by ANY ONE of the following (41) [ ]a) Acute valvular regurgitation (42) [ ]b) Noninfectious valvulitis (43) [ ]c) Obstructive valve thrombosis [ ]d) Paravalvular leak [ ]e) Other significant valvular disorder remaining after emergency or observation level of care (as appropriate) [ ]X. Pericardial disease requiring inpatient treatment as indicated by ANY ONE of the following (33)(34)(35)(36)(37) [ ]a) Suspected tamponade (38)(39)(40) [ ]b) Hemopericardium [ ]c) Other significant pericardial disorder remaining after emergency or observation level of care (as appropriate) [ ] XI. Cardiac ischemia beyond scope of emergency and observation care. [ ] XII. Hypertension requiring inpatient treatment as indicated by ANY ONE of the following (6)(7)(8) [ ]a) SBP greater than 220 mm Hg or DBP greater than 120 mmHg despite treatment [ ]b) SBP greater than 140 mm Hg or DBP greater than 100 mm Hg with evidence of acute end organ damage as indicated by ANY ONE of the following [ ] i) Encephalopathy [ ] ii) Acute renal failure as indicated by new onset of ANY ONE of the following (9)(10)(11)(12)(13) [ ]1) 3-fold rise in serum creatinine from baseline [ ]2) Serum creatinine greater than 4 mg/dL ( 354 micromoles/L) with acute rise greater than 0.5 mg/dL (44.2 micromoles/L) [ ]3) Reduction of more than 75% in estimated glomerular filtration rate from baseline [ ]4) Estimated glomerular filtration rate less than 35 mL/min/1.73m2 (0.59 mL/sec/1.73m2) in child up to 18 years of age [ ]5) Cessation of urine output indicated by ALL of the following [ ]A. Adequate volume status [ ]B. Inadequate urine output as indicated by ANY ONE of the following [ ]a. Urine output less than 0.3 mL/kg/hr for 24 hours [ ]b. Anuria (urine output less than 0.1 mL/kg/hr) for 12 hours [ ] iii) Aortic dissection [ ] iv) Myocardial Ischemia [ ] v) Left ventricular heart failure [ ]vi) Retinal Hemorrhage [ ]vii) Other significant finding [ ]c) Hypertension in child requiring inpatient treatment as indicated by ALL of the following(14)(15)(16) [ ] i) Outpatient treatment not effective, not available, or not appropriate [ ]ii) SBP or DBP greater than 95th percentile for age [ ]iii) Evidence of acute end organ damage as indicated by ANY ONE of the following [ ]1) Altered mental status [ ]2) Acute renal failure as indicated by new onset of ANY ONE of the following(9)(10)(11)(12)(13) [ ]A. 3-fold rise in serum creatinine from baseline [ ]B. Serum creatinine greater than 4 mg/dL (354 micromoles/L) with acute rise greater than 0.5 mg/dL (44.2 micromoles/L) [ ]C. Reduction of more than 75% in estimated glomerular filtration rate from baseline [ ]D. Estimated glomerular filtration rate less than 35 mL/min/1.73m2 (0.59 mL/sec/1.73m2) in child up to 18 years of age [ ]E. Cessation of urine output indicated by ALL of the following [ ]a. Adequate volume status [ ]b. Inadequate urine output as indicated by ANY ONE of the following [ ]i) Urine output less than 0.3 mL/kg/hr for 24 hours [ ]ii) Anuria ( urine output less than 0.1 mL/kg/hr) for 12 hours [ ]3) Severe headache [ ]4) Visual disturbance [ ]5) Retinal hemorrhage [ ]6) Other significant finding [ ]XIII. Complications of transplanted heart indicated by ANY ONE of the following(61): [ ]a) Acute graft rejection requiring inpatient management (eg, intravenous immunosuppression)(62)(63) [ ]b) Acute graft heart failure indicated by ANY ONE of the following(64): [ ]i) Hemodynamic instability [ ]ii) Cardiac arrhythmias of immediate concern [ ]iii) Pulmonary edema that is very severe (eg, mechanical ventilation needed, imminent or likely, need for 100% oxygen to keep oxygen saturation above 90%) [ ]iv) Pulmonary edema that is persistent as indicated by ALL of the following: [ ]1) New need for oxygen therapy to keep oxygen saturation above 90% (or increased FiO2 need from baseline) [ ]2) Has not improved sufficiently with emergency department or observation care IV diuretics or other heart failure treatments[E] [ ]v) Altered mental status that is severe or persistent [ ]vi) Increased creatinine (new on laboratory test) with reduction of more than 50% in estimated glomerular filtration rate from baseline [ ]vii) Progressively (ongoing) rising creatinine (known from past laboratory test) with reduction of more than 25% in estimated glomerular filtration rate from baseline [ ]viii) Acute renal failure [ ]ix) Acute peripheral ischemia (eg, examination shows pulseless, cool, mottled, or cyanotic extremity) [ ]x) Pulmonary artery catheter monitoring needed [ ]xi) Other sign or symptom of heart failure requiring inpatient treatment (ie, too severe or not responsive to outpatient and observation care treatment) [ ]c) Infection requiring inpatient management (eg, Hemodynamic instability, need for intravenous antimicrobial treatment)(66)(67)(68)(69)(70) [ ]d) Cardiac allograft vasculopathy requiring inpatient management ( eg evidence of cardiac ischemia)(71) [ ]e) Other complication of transplanted heart (eg, stroke, severe pulmonary hypertension, severe valvular dysfunction) requiring inpatient management(72) The original [facility] content created by [facility] has been revised. The portions of the content which have been revised are identified through the use of italic text or in bold, and [facility] has neither reviewed nor approved the modified material. All other unmodified content is copyright [facility]. Please see references footnoted in the original [facility] [employer] edition 2016 NORMA RFASER Sep 10, 2016 08:52
[2016-09-10 08:57] LABS: BARBITURATES NEG (NEG); BENZODIAZEPINES NEG (NEG); CANNABINOIDS NEG (NEG); COCAINE NEG (NEG); METHADONE NEG (NEG); OPIATES POS (NEG); PHENCYCLIDINE NEG (NEG)
[2016-09-10 08:58] LABS: ETHANOL, URINE NEG (NEG)
[2016-09-10] MEDS ORDERED: RIVAROXABAN 10 MG TABLET. PO SCH (09:00)
--- NOTE | 2016-09-10 09:07 | RAD ---
Portable AP upright view CXR: Clinical indications: Chest pain in the left side. History of COPD and diabetes. Comparison: August 05, 2016.. Findings: No acute lung infiltrate or pleural effusion or pulmonary edema or lung mass or pneumothorax is seen. The heart size, pulmonary vasculature, mediastinum and both sammy are unremarkable. Again seen is a metallic foreign body overlying the left lower chest. Impression: No new radiographic abnormality is seen.
[2016-09-10] MEDS ORDERED: ONDANSETRON PF 4 MG/2 ML VIAL. IV PRN (09:26)
[2016-09-10] MEDS ORDERED: ACETAMINOPHEN 500 MG TABLET PO PRN (09:30)
--- NOTE | 2016-09-10 10:10 | EKG ---
[facility] [address] [place] [address] Test Date: 2016-09-09 Test Time: 17:37:37 Pat Name: LEONEL GODWIN Department: Room: Gender: M Prn Physical Therapist: : [id number] Requested By: AKANKSHA PHELPS Order Number: [id number] Reading MD: Measurements Intervals [place] Rate: 96 P: 62 CO: 138 QRS: 22 QRSD: 92 T: 54 QT: 354 QTc: 448 Interpretive Statements SINUS RHYTHM LEFT ATRIAL ABNORMALITY QRS(T) CONTOUR ABNORMALITY CONSIDER ANTEROLATERAL MYOCARDIAL DAMAGE RI6.01 No previous ECG available for comparison
--- NOTE | 2016-09-10 12:59 | PDOC2 ---
PREETI ADLER BULK SEALER 09/10/16 1259: CARDIAC CONSULT DATE OF CONSULT Date of Consult DATE: 09/10/16 TIME: 12:56 REASON FOR CONSULT Reason for Consult: chest pain HISTORY OF PRESENT ILLNESS HISTORY OF PRESENT ILLNESS Mr Mccoy is a 51 year old male with history of hypertension, PE. He presents with complaints of chest pain he describes as a left sided heaviness and ache that started several days ago. He reports discomfort onset is while up walking and resolves with about 5 minutes of resting. He denies radiation but does report associated dyspnea. He denies any prior history of this kind of discomfort. He complains of chronic swelling in his legs and of discomfort in both lower legs with walking that resolves with about 30 min of sitting down. He denies palpitations or congestive symptoms. PAST MEDICAL HISTORY Past Medical History Past Medical History with history of an ID and DVT, PE on Xarelto Cardiovascular: HTN, ID, Hyperlipidemia Pulmonary: Pulmonary embolus, Other Heme/Onc: Other Psych: Anxiety, PTSD, bipolar Musculoskeletal: Osteoarthritis Rheumatologic: Other Endocrine: Diabetes Past Surgical History Past Surgical History: Cholecystectomy, Hernia Repair, Total knee replacement Family History Family History: Coronary Artery Disease, Family History Unknown Social History ALCOHOL: none Drugs: None, Crystal meth PAST SURGICAL HISTORY Past Surgical History Past Surgical History: Cholecystectomy, Hernia Repair, Total knee replacement FAMILY HISTORY Family History Family History: Coronary Artery Disease, Family History Unknown SOCIAL HISTORY Social History Denies significant alcohol, history of methamphetamine use CURRENT MEDICATIONS CURRENT MEDICATIONS Current Medications Medications (Trade) Dose Ordered Sig/Krys Route PRN Reason Start Time Stop Time Status Last Admin Dose Admin Morphine Sulfate 2 mg PRN Q2HR PRN IV PAIN 09/09/16 19:30 09/10/16 19:29 09/10/16 07:35 Iohexol (Omnipaque 300 Mg/ml) 75 ml 1X ONCE IV 09/09/16 19:45 09/09/16 19:46 DC 09/09/16 20:32 Furosemide (Lasix) 10 mg DAILY08 PO 09/10/16 08:00 09/10/16 08:25 Insulin Detemir (Levemir) 20 units HS SQ 09/09/16 22:30 09/09/16 22:41 Lisinopril (Prinivil) 10 mg DAILY PO 09/10/16 09:00 09/10/16 08:26 Trazodone HCl (Desyrel) 100 mg QHS PO 09/09/16 22:30 09/09/16 22:35 Citalopram Hydrobromide (Celexa) 40 mg DAILY08 PO 09/10/16 08:00 09/10/16 08:24 Quetiapine Fumarate (SEROquel) 50 mg QHS PO 09/09/16 22:30 09/09/16 22:35 Rivaroxaban (Xarelto) 20 mg DAILY PO 09/10/16 09:00 09/10/16 08:24 ALLERGIES ALLERGIES: Coded Allergies: Sulfa (Sulfonamide Antibiotics) (Verified Allergy, Severe, sob, 03/18/16) ketorolac tromethamine (Verified Allergy, Intermediate, hives, 03/18/16) ROS Review of System as per HPI PHYSICAL EXAM General: Alert, Oriented X3, Cooperative, No acute distress HEENT: Atraumatic Lungs: Other (coarse, no crackles, rhonchi or wheezing) Heart: Normal S1, Normal S2, Other (no gallops, clicks or rubs) Abdomen: Normal bowel sounds Extremities: Other (bilateral lower extremities with chronic edema and changes consistant with venous insufficiency. Palpable pulses bilaterally) Neuro: Normal speech, Strength at 5/5 X4 ext Psych/Mental Status: Mental status NL, Mood NL VITALS VITALS Vital Signs Date Time Temp Pulse Resp B/P Pulse Ox O2 Delivery O2 Flow Rate FiO2 09/10/16 11:00 97.5 80 14 106/70 96 Room Air 97.5 09/10/16 08:05 98.0 LABS Lab: Laboratory Tests Test 09/09/16 17:47 09/09/16 21:06 09/09/16 23:25 09/10/16 00:40 White Blood Count 10.3x10^3/uL (4.0-11.0) Red Blood Count 5.12x10^6/uL (4.30-5.70) Hemoglobin 14.5g/dL (13.0-17.5) Hematocrit 42.6% (39.0-53.0) Mean Corpuscular Volume 83fL (79-100) Mean Corpuscular Hemoglobin 28pg (25-35) Mean Corpuscular Hemoglobin Concent 34g/dL (31-37) Red Cell Distribution Width 17.0% (11.5-14.5) Platelet Count 351x10^3/uL (140-400) Neutrophils (%) (Auto) 61% (31-73) Lymphocytes (%) (Auto) 26% (24-48) Monocytes (%) (Auto) 9% (0-9) Eosinophils (%) (Auto) 3% (0-3) Basophils (%) (Auto) 1% (0-3) Neutrophils # (Auto) 6.3x10^3uL (1.8-7.7) Lymphocytes # (Auto) 2.7x10^3/uL (1.0-4.8) Monocytes # (Auto) 0.9x10^3/uL (0.0-1.1) Eosinophils # (Auto) 0.3x10^3/uL (0.0-0.7) Basophils # (Auto) 0.1x10^3/uL (0.0-0.2) Sodium Level 138mmol/L (136-145) Potassium Level 4.1mmol/L (3.5-5.1) Chloride Level 104mmol/L (98-107) Carbon Dioxide Level 25mmol/L (21-32) Anion Gap 9 (6-14) Blood Urea Nitrogen 20mg/dL (8-26) Creatinine 1.1mg/dL (0.7-1.3) Estimated GFR (Cockcroft-Gault) 70.0 Glucose Level 148mg/dL (70-99) Calcium Level 8.9mg/dL (8.5-10.1) Total Bilirubin 0.3mg/dL (0.2-1.0) Direct Bilirubin 0.1mg/dL (0.0-0.2) Aspartate Amino Transf (AST/SGOT) 23U/L (15-37) Alanine Aminotransferase (ALT/SGPT) 27U/L (16-63) Alkaline Phosphatase 81U/L (46-116) Troponin I Quantitative < 0.017ng/mL (0.000-0.055) < 0.017ng/mL (0.000-0.055) BT-Gbv-I-Type Natriuretic Peptide 147pg/mL (0-124) Total Protein 7.3g/dL (6.4-8.2) Albumin 3.1g/dL (3.4-5.0) Lipase 131U/L (73-393) Glucose (Fingerstick) 100mg/dL (70-99) 116mg/dL (70-99) Test 09/10/16 04:44 09/10/16 07:44 09/10/16 08:00 09/10/16 11:20 White Blood Count 8.6x10^3/uL (4.0-11.0) Red Blood Count 4.88x10^6/uL (4.30-5.70) Hemoglobin 13.6g/dL (13.0-17.5) Hematocrit 41.6% (39.0-53.0) Mean Corpuscular Volume 85fL (79-100) Mean Corpuscular Hemoglobin 28pg (25-35) Mean Corpuscular Hemoglobin Concent 33g/dL (31-37) Red Cell Distribution Width 17.1% (11.5-14.5) Platelet Count 286x10^3/uL (140-400) Neutrophils (%) (Auto) 56% (31-73) Lymphocytes (%) (Auto) 29% (24-48) Monocytes (%) (Auto) 10% (0-9) Eosinophils (%) (Auto) 4% (0-3) Basophils (%) (Auto) 1% (0-3) Neutrophils # (Auto) 4.8x10^3uL (1.8-7.7) Lymphocytes # (Auto) 2.5x10^3/uL (1.0-4.8) Monocytes # (Auto) 0.9x10^3/uL (0.0-1.1) Eosinophils # (Auto) 0.4x10^3/uL (0.0-0.7) Basophils # (Auto) 0.1x10^3/uL (0.0-0.2) Sodium Level 139mmol/L (136-145) Potassium Level 4.2mmol/L (3.5-5.1) Chloride Level 105mmol/L (98-107) Carbon Dioxide Level 25mmol/L (21-32) Anion Gap 9 (6-14) Blood Urea Nitrogen 23mg/dL (8-26) Creatinine 1.0mg/dL (0.7-1.3) Estimated GFR (Cockcroft-Gault) 78.2 BUN/Creatinine Ratio 23 (6-20) Glucose Level 113mg/dL (70-99) Calcium Level 8.6mg/dL (8.5-10.1) Total Bilirubin 0.2mg/dL (0.2-1.0) Aspartate Amino Transf (AST/SGOT) 18U/L (15-37) Alanine Aminotransferase (ALT/SGPT) 24U/L (16-63) Alkaline Phosphatase 79U/L (46-116) Troponin I Quantitative < 0.017ng/mL (0.000-0.055) Total Protein 6.7g/dL (6.4-8.2) Albumin 2.9g/dL (3.4-5.0) Albumin/Globulin Ratio 0.8 (1.0-1.7) Triglycerides Level 122mg/dL (0-150) Cholesterol Level 139mg/dL (0-200) LDL Cholesterol, Calculated 69mg/dL (0-100) VLDL Cholesterol, Calculated 24mg/dL (0-40) HDL Cholesterol 46mg/dL (40-60) Cholesterol/HDL Ratio 3.0 Glucose (Fingerstick) 94mg/dL (70-99) 79mg/dL (70-99) Urine Opiates Screen Pos (NEG) Urine Methadone Screen Neg (NEG) Urine Barbiturates Neg (NEG) Urine Phencyclidine Screen Neg (NEG) Urine Amphetamine/Methamphetamine Neg (NEG) Urine Benzodiazepines Screen Neg (NEG) Urine Cocaine Screen Neg (NEG) Urine Cannabinoids Screen Neg (NEG) Urine Ethyl Alcohol Neg (NEG) IMAGES IMAGES CTA IMPRESSION There is no CT evidence of pulmonary embolism. EKG EKG sinus rhythm without any acute ischemic changes ASSESSMENT/PLAN ASSESSMENT/PLAN 1. Chest pain suspicious for stable angina. EKG without acute ischemic changes and cardiac enzymes remain negative. Suggest MPI in am, RF reduction . Will check lipids. low dose asa. consider beta damaris after MPI. 2. Hx PE, on OAC . CTA negative for PE. 3. hypertension - controlled 4. edema, chronic - venous ruflux studies as outpatient. Problems: EMILEE GOLDSMITH MD 09/10/16 1427: CARDIAC CONSULT ALLERGIES ALLERGIES: Coded Allergies: Sulfa (Sulfonamide Antibiotics) (Verified Allergy, Severe, sob, 03/18/16) ketorolac tromethamine (Verified Allergy, Intermediate, hives, 10/14/16) ASSESSMENT/PLAN ASSESSMENT/PLAN Patient seen and examined. Agree with [facility] OF [facility]IC[facility]'s assessment and plan. Chest pain with mixed typical and atypical features. Myocardial infarction ruled out. CT scan of the chest negative for PE. Plan for Lexiscan nuclear stress test to rule out ischemia. Thank you for your consultation. Problems: PREETI ADLER APRN Sep 10, 2016 12:59 EMILEE GOLDSMITH MD Sep 10, 2016 14:27
--- NOTE | 2016-09-10 14:04 | PDOC ---
PROGRESS NOTES Chief Complaint Chief Complaint chest pain, angina with hx of CAD SIRS, not infectious, nor organ dysfunction morbid obesity BMI 46, w. hypoalbuminemia and mild malnutrition Hx substance abuse Coagulopathy per Hx, on xarelto, prior Pulm stent, Dm2, History of Present Illness History of Present Illness No CP, ate today So for 2 day MPI Cards note reviewed PLAN: MPI NPO post MN CPM Vitals Vitals Vital Signs Date Time Temp Pulse Resp B/P Pulse Ox O2 Delivery O2 Flow Rate FiO2 09/10/16 11:00 97.5 80 14 106/70 96 Room Air 97.5 09/10/16 08:05 98.0 Physical Exam General: Alert, Oriented X3, Cooperative, No acute distress Heart: Normal S1, Normal S2, Other (no gallops, clicks or rubs) Lungs: Clear, Other Abdomen: Normal bowel sounds Extremities: Other (bilateral lower extremities with chronic edema and changes consistant with venous insufficiency. Palpable pulses bilaterally) Labs LABS Laboratory Tests Test 09/09/16 17:47 09/09/16 21:06 09/09/16 23:25 09/10/16 00:40 White Blood Count 10.3x10^3/uL (4.0-11.0) Red Blood Count 5.12x10^6/uL (4.30-5.70) Hemoglobin 14.5g/dL (13.0-17.5) Hematocrit 42.6% (39.0-53.0) Mean Corpuscular Volume 83fL (79-100) Mean Corpuscular Hemoglobin 28pg (25-35) Mean Corpuscular Hemoglobin Concent 34g/dL (31-37) Red Cell Distribution Width 17.0% (11.5-14.5) Platelet Count 351x10^3/uL (140-400) Neutrophils (%) (Auto) 61% (31-73) Lymphocytes (%) (Auto) 26% (24-48) Monocytes (%) (Auto) 9% (0-9) Eosinophils (%) (Auto) 3% (0-3) Basophils (%) (Auto) 1% (0-3) Neutrophils # (Auto) 6.3x10^3uL (1.8-7.7) Lymphocytes # (Auto) 2.7x10^3/uL (1.0-4.8) Monocytes # (Auto) 0.9x10^3/uL (0.0-1.1) Eosinophils # (Auto) 0.3x10^3/uL (0.0-0.7) Basophils # (Auto) 0.1x10^3/uL (0.0-0.2) Sodium Level 138mmol/L (136-145) Potassium Level 4.1mmol/L (3.5-5.1) Chloride Level 104mmol/L (98-107) Carbon Dioxide Level 25mmol/L (21-32) Anion Gap 9 (6-14) Blood Urea Nitrogen 20mg/dL (8-26) Creatinine 1.1mg/dL (0.7-1.3) Estimated GFR (Cockcroft-Gault) 70.0 Glucose Level 148mg/dL (70-99) Calcium Level 8.9mg/dL (8.5-10.1) Total Bilirubin 0.3mg/dL (0.2-1.0) Direct Bilirubin 0.1mg/dL (0.0-0.2) Aspartate Amino Transf (AST/SGOT) 23U/L (15-37) Alanine Aminotransferase (ALT/SGPT) 27U/L (16-63) Alkaline Phosphatase 81U/L (46-116) Troponin I Quantitative < 0.017ng/mL (0.000-0.055) < 0.017ng/mL (0.000-0.055) PZ-Ouu-Y-Type Natriuretic Peptide 147pg/mL (0-124) Total Protein 7.3g/dL (6.4-8.2) Albumin 3.1g/dL (3.4-5.0) Lipase 131U/L (73-393) Glucose (Fingerstick) 100mg/dL (70-99) 116mg/dL (70-99) Test 09/10/16 04:44 09/10/16 07:44 09/10/16 08:00 09/10/16 11:20 White Blood Count 8.6x10^3/uL (4.0-11.0) Red Blood Count 4.88x10^6/uL (4.30-5.70) Hemoglobin 13.6g/dL (13.0-17.5) Hematocrit 41.6% (39.0-53.0) Mean Corpuscular Volume 85fL (79-100) Mean Corpuscular Hemoglobin 28pg (25-35) Mean Corpuscular Hemoglobin Concent 33g/dL (31-37) Red Cell Distribution Width 17.1% (11.5-14.5) Platelet Count 286x10^3/uL (140-400) Neutrophils (%) (Auto) 56% (31-73) Lymphocytes (%) (Auto) 29% (24-48) Monocytes (%) (Auto) 10% (0-9) Eosinophils (%) (Auto) 4% (0-3) Basophils (%) (Auto) 1% (0-3) Neutrophils # (Auto) 4.8x10^3uL (1.8-7.7) Lymphocytes # (Auto) 2.5x10^3/uL (1.0-4.8) Monocytes # (Auto) 0.9x10^3/uL (0.0-1.1) Eosinophils # (Auto) 0.4x10^3/uL (0.0-0.7) Basophils # (Auto) 0.1x10^3/uL (0.0-0.2) Sodium Level 139mmol/L (136-145) Potassium Level 4.2mmol/L (3.5-5.1) Chloride Level 105mmol/L (98-107) Carbon Dioxide Level 25mmol/L (21-32) Anion Gap 9 (6-14) Blood Urea Nitrogen 23mg/dL (8-26) Creatinine 1.0mg/dL (0.7-1.3) Estimated GFR (Cockcroft-Gault) 78.2 BUN/Creatinine Ratio 23 (6-20) Glucose Level 113mg/dL (70-99) Calcium Level 8.6mg/dL (8.5-10.1) Total Bilirubin 0.2mg/dL (0.2-1.0) Aspartate Amino Transf (AST/SGOT) 18U/L (15-37) Alanine Aminotransferase (ALT/SGPT) 24U/L (16-63) Alkaline Phosphatase 79U/L (46-116) Troponin I Quantitative < 0.017ng/mL (0.000-0.055) Total Protein 6.7g/dL (6.4-8.2) Albumin 2.9g/dL (3.4-5.0) Albumin/Globulin Ratio 0.8 (1.0-1.7) Triglycerides Level 122mg/dL (0-150) Cholesterol Level 139mg/dL (0-200) LDL Cholesterol, Calculated 69mg/dL (0-100) VLDL Cholesterol, Calculated 24mg/dL (0-40) HDL Cholesterol 46mg/dL (40-60) Cholesterol/HDL Ratio 3.0 Glucose (Fingerstick) 94mg/dL (70-99) 79mg/dL (70-99) Urine Opiates Screen Pos (NEG) Urine Methadone Screen Neg (NEG) Urine Barbiturates Neg (NEG) Urine Phencyclidine Screen Neg (NEG) Urine Amphetamine/Methamphetamine Neg (NEG) Urine Benzodiazepines Screen Neg (NEG) Urine Cocaine Screen Neg (NEG) Urine Cannabinoids Screen Neg (NEG) Urine Ethyl Alcohol Neg (NEG) Review of Systems Review of Systems no cp, soa, abd pain, ,nv,d Assessment and Plan Assessmemt and Plan Problems Medical Problems: (1) Chest pain Status: Acute Problems: Comment Review of Relevant I have reviewed the following items kahlil (where applicable) has been applied. Labs Laboratory Tests Test 09/09/16 17:47 09/09/16 21:06 09/09/16 23:25 09/10/16 00:40 White Blood Count 10.3x10^3/uL (4.0-11.0) Red Blood Count 5.12x10^6/uL (4.30-5.70) Hemoglobin 14.5g/dL (13.0-17.5) Hematocrit 42.6% (39.0-53.0) Mean Corpuscular Volume 83fL (79-100) Mean Corpuscular Hemoglobin 28pg (25-35) Mean Corpuscular Hemoglobin Concent 34g/dL (31-37) Red Cell Distribution Width 17.0% (11.5-14.5) Platelet Count 351x10^3/uL (140-400) Neutrophils (%) (Auto) 61% (31-73) Lymphocytes (%) (Auto) 26% (24-48) Monocytes (%) (Auto) 9% (0-9) Eosinophils (%) (Auto) 3% (0-3) Basophils (%) (Auto) 1% (0-3) Neutrophils # (Auto) 6.3x10^3uL (1.8-7.7) Lymphocytes # (Auto) 2.7x10^3/uL (1.0-4.8) Monocytes # (Auto) 0.9x10^3/uL (0.0-1.1) Eosinophils # (Auto) 0.3x10^3/uL (0.0-0.7) Basophils # (Auto) 0.1x10^3/uL (0.0-0.2) Sodium Level 138mmol/L (136-145) Potassium Level 4.1mmol/L (3.5-5.1) Chloride Level 104mmol/L (98-107) Carbon Dioxide Level 25mmol/L (21-32) Anion Gap 9 (6-14) Blood Urea Nitrogen 20mg/dL (8-26) Creatinine 1.1mg/dL (0.7-1.3) Estimated GFR (Cockcroft-Gault) 70.0 Glucose Level 148mg/dL (70-99) Calcium Level 8.9mg/dL (8.5-10.1) Total Bilirubin 0.3mg/dL (0.2-1.0) Direct Bilirubin 0.1mg/dL (0.0-0.2) Aspartate Amino Transf (AST/SGOT) 23U/L (15-37) Alanine Aminotransferase (ALT/SGPT) 27U/L (16-63) Alkaline Phosphatase 81U/L (46-116) Troponin I Quantitative < 0.017ng/mL (0.000-0.055) < 0.017ng/mL (0.000-0.055) PE-Hpe-C-Type Natriuretic Peptide 147pg/mL (0-124) Total Protein 7.3g/dL (6.4-8.2) Albumin 3.1g/dL (3.4-5.0) Lipase 131U/L (73-393) Glucose (Fingerstick) 100mg/dL (70-99) 116mg/dL (70-99) Test 09/10/16 04:44 09/10/16 07:44 09/10/16 08:00 09/10/16 11:20 White Blood Count 8.6x10^3/uL (4.0-11.0) Red Blood Count 4.88x10^6/uL (4.30-5.70) Hemoglobin 13.6g/dL (13.0-17.5) Hematocrit 41.6% (39.0-53.0) Mean Corpuscular Volume 85fL (79-100) Mean Corpuscular Hemoglobin 28pg (25-35) Mean Corpuscular Hemoglobin Concent 33g/dL (31-37) Red Cell Distribution Width 17.1% (11.5-14.5) Platelet Count 286x10^3/uL (140-400) Neutrophils (%) (Auto) 56% (31-73) Lymphocytes (%) (Auto) 29% (24-48) Monocytes (%) (Auto) 10% (0-9) Eosinophils (%) (Auto) 4% (0-3) Basophils (%) (Auto) 1% (0-3) Neutrophils # (Auto) 4.8x10^3uL (1.8-7.7) Lymphocytes # (Auto) 2.5x10^3/uL (1.0-4.8) Monocytes # (Auto) 0.9x10^3/uL (0.0-1.1) Eosinophils # (Auto) 0.4x10^3/uL (0.0-0.7) Basophils # (Auto) 0.1x10^3/uL (0.0-0.2) Sodium Level 139mmol/L (136-145) Potassium Level 4.2mmol/L (3.5-5.1) Chloride Level 105mmol/L (98-107) Carbon Dioxide Level 25mmol/L (21-32) Anion Gap 9 (6-14) Blood Urea Nitrogen 23mg/dL (8-26) Creatinine 1.0mg/dL (0.7-1.3) Estimated GFR (Cockcroft-Gault) 78.2 BUN/Creatinine Ratio 23 (6-20) Glucose Level 113mg/dL (70-99) Calcium Level 8.6mg/dL (8.5-10.1) Total Bilirubin 0.2mg/dL (0.2-1.0) Aspartate Amino Transf (AST/SGOT) 18U/L (15-37) Alanine Aminotransferase (ALT/SGPT) 24U/L (16-63) Alkaline Phosphatase 79U/L (46-116) Troponin I Quantitative < 0.017ng/mL (0.000-0.055) Total Protein 6.7g/dL (6.4-8.2) Albumin 2.9g/dL (3.4-5.0) Albumin/Globulin Ratio 0.8 (1.0-1.7) Triglycerides Level 122mg/dL (0-150) Cholesterol Level 139mg/dL (0-200) LDL Cholesterol, Calculated 69mg/dL (0-100) VLDL Cholesterol, Calculated 24mg/dL (0-40) HDL Cholesterol 46mg/dL (40-60) Cholesterol/HDL Ratio 3.0 Glucose (Fingerstick) 94mg/dL (70-99) 79mg/dL (70-99) Urine Opiates Screen Pos (NEG) Urine Methadone Screen Neg (NEG) Urine Barbiturates Neg (NEG) Urine Phencyclidine Screen Neg (NEG) Urine Amphetamine/Methamphetamine Neg (NEG) Urine Benzodiazepines Screen Neg (NEG) Urine Cocaine Screen Neg (NEG) Urine Cannabinoids Screen Neg (NEG) Urine Ethyl Alcohol Neg (NEG) Laboratory Tests Test 09/09/16 17:47 09/09/16 21:06 09/09/16 23:25 09/10/16 00:40 White Blood Count 10.3x10^3/uL (4.0-11.0) Red Blood Count 5.12x10^6/uL (4.30-5.70) Hemoglobin 14.5g/dL (13.0-17.5) Hematocrit 42.6% (39.0-53.0) Mean Corpuscular Volume 83fL (79-100) Mean Corpuscular Hemoglobin 28pg (25-35) Mean Corpuscular Hemoglobin Concent 34g/dL (31-37) Red Cell Distribution Width 17.0% (11.5-14.5) Platelet Count 351x10^3/uL (140-400) Neutrophils (%) (Auto) 61% (31-73) Lymphocytes (%) (Auto) 26% (24-48) Monocytes (%) (Auto) 9% (0-9) Eosinophils (%) (Auto) 3% (0-3) Basophils (%) (Auto) 1% (0-3) Neutrophils # (Auto) 6.3x10^3uL (1.8-7.7) Lymphocytes # (Auto) 2.7x10^3/uL (1.0-4.8) Monocytes # (Auto) 0.9x10^3/uL (0.0-1.1) Eosinophils # (Auto) 0.3x10^3/uL (0.0-0.7) Basophils # (Auto) 0.1x10^3/uL (0.0-0.2) Sodium Level 138mmol/L (136-145) Potassium Level 4.1mmol/L (3.5-5.1) Chloride Level 104mmol/L (98-107) Carbon Dioxide Level 25mmol/L (21-32) Anion Gap 9 (6-14) Blood Urea Nitrogen 20mg/dL (8-26) Creatinine 1.1mg/dL (0.7-1.3) Estimated GFR (Cockcroft-Gault) 70.0 Glucose Level 148mg/dL (70-99) Calcium Level 8.9mg/dL (8.5-10.1) Total Bilirubin 0.3mg/dL (0.2-1.0) Direct Bilirubin 0.1mg/dL (0.0-0.2) Aspartate Amino Transf (AST/SGOT) 23U/L (15-37) Alanine Aminotransferase (ALT/SGPT) 27U/L (16-63) Alkaline Phosphatase 81U/L (46-116) Troponin I Quantitative < 0.017ng/mL (0.000-0.055) < 0.017ng/mL (0.000-0.055) HA-Vta-Y-Type Natriuretic Peptide 147pg/mL (0-124) Total Protein 7.3g/dL (6.4-8.2) Albumin 3.1g/dL (3.4-5.0) Lipase 131U/L (73-393) Glucose (Fingerstick) 100mg/dL (70-99) 116mg/dL (70-99) Test 09/10/16 04:44 09/10/16 07:44 09/10/16 08:00 09/10/16 11:20 White Blood Count 8.6x10^3/uL (4.0-11.0) Red Blood Count 4.88x10^6/uL (4.30-5.70) Hemoglobin 13.6g/dL (13.0-17.5) Hematocrit 41.6% (39.0-53.0) Mean Corpuscular Volume 85fL (79-100) Mean Corpuscular Hemoglobin 28pg (25-35) Mean Corpuscular Hemoglobin Concent 33g/dL (31-37) Red Cell Distribution Width 17.1% (11.5-14.5) Platelet Count 286x10^3/uL (140-400) Neutrophils (%) (Auto) 56% (31-73) Lymphocytes (%) (Auto) 29% (24-48) Monocytes (%) (Auto) 10% (0-9) Eosinophils (%) (Auto) 4% (0-3) Basophils (%) (Auto) 1% (0-3) Neutrophils # (Auto) 4.8x10^3uL (1.8-7.7) Lymphocytes # (Auto) 2.5x10^3/uL (1.0-4.8) Monocytes # (Auto) 0.9x10^3/uL (0.0-1.1) Eosinophils # (Auto) 0.4x10^3/uL (0.0-0.7) Basophils # (Auto) 0.1x10^3/uL (0.0-0.2) Sodium Level 139mmol/L (136-145) Potassium Level 4.2mmol/L (3.5-5.1) Chloride Level 105mmol/L (98-107) Carbon Dioxide Level 25mmol/L (21-32) Anion Gap 9 (6-14) Blood Urea Nitrogen 23mg/dL (8-26) Creatinine 1.0mg/dL (0.7-1.3) Estimated GFR (Cockcroft-Gault) 78.2 BUN/Creatinine Ratio 23 (6-20) Glucose Level 113mg/dL (70-99) Calcium Level 8.6mg/dL (8.5-10.1) Total Bilirubin 0.2mg/dL (0.2-1.0) Aspartate Amino Transf (AST/SGOT) 18U/L (15-37) Alanine Aminotransferase (ALT/SGPT) 24U/L (16-63) Alkaline Phosphatase 79U/L (46-116) Troponin I Quantitative < 0.017ng/mL (0.000-0.055) Total Protein 6.7g/dL (6.4-8.2) Albumin 2.9g/dL (3.4-5.0) Albumin/Globulin Ratio 0.8 (1.0-1.7) Triglycerides Level 122mg/dL (0-150) Cholesterol Level 139mg/dL (0-200) LDL Cholesterol, Calculated 69mg/dL (0-100) VLDL Cholesterol, Calculated 24mg/dL (0-40) HDL Cholesterol 46mg/dL (40-60) Cholesterol/HDL Ratio 3.0 Glucose (Fingerstick) 94mg/dL (70-99) 79mg/dL (70-99) Urine Opiates Screen Pos (NEG) Urine Methadone Screen Neg (NEG) Urine Barbiturates Neg (NEG) Urine Phencyclidine Screen Neg (NEG) Urine Amphetamine/Methamphetamine Neg (NEG) Urine Benzodiazepines Screen Neg (NEG) Urine Cocaine Screen Neg (NEG) Urine Cannabinoids Screen Neg (NEG) Urine Ethyl Alcohol Neg (NEG) Medications Current Medications Aspirin (Children'S Aspirin) 324 mg 1X ONCE PO ; Start 09/09/16 at 08:00; Stop 09/09/16 at 17:47; Status DC Ondansetron HCl (Zofran) 4 mg PRN Q8HRS PRN IV NAUSEA/VOMITING; Start 09/09/16 at 19:30; Stop 09/10/16 at 09:28; Status DC Morphine Sulfate 2 mg PRN Q2HR PRN IV PAIN Last administered on 09/10/16 07:35 ; Start 09/09/16 at 19:30; Stop 09/10/16 at 19:29 Nitroglycerin (Nitrostat) 0.4 mg PRN Q5MIN PRN SL CHEST PAIN; Start 09/09/16 at 19:30; Stop 09/10/16 at 19:29 Iohexol (Omnipaque 300 Mg/ml) 75 ml 1X ONCE IV Last administered on 09/09/16 20:32; Start 09/09/16 at 19:45; Stop 09/09/16 at 19:46; Status DC Info (Do NOT chart on this entry -- for MONITORING) 1 each PRN DAILY PRN MC SEE COMMENTS; Start 09/09/16 at 19:45; Stop 09/11/16 at 19:44 Furosemide (Lasix) 10 mg DAILY08 PO Last administered on 09/10/16 08:25; Start 09/10/16 at 08:00 Insulin Detemir (Levemir) 20 units HS SQ Last administered on 09/09/16 22:41; Start 09/09/16 at 22:30 Lisinopril (Prinivil) 10 mg DAILY PO Last administered on 09/10/16 08:26; Start 09/10/16 at 09:00 Trazodone HCl (Desyrel) 100 mg QHS PO Last administered on 09/09/16 22:35; Start 09/09/16 at 22:30 Citalopram Hydrobromide (Celexa) 40 mg DAILY08 PO Last administered on 08:24; Start 09/10/16 at 08:00 Quetiapine Fumarate (SEROquel) 50 mg QHS PO Last administered on 09/09/16 22:35 ; Start 09/09/16 at 22:30 Rivaroxaban (Xarelto) 20 mg DAILY PO Last administered on 09/10/16 08:24; Start 09/10/16 at 09:00; Stop 09/10/16 at 13:41; Status DC Insulin Aspart (Novolog) 0-7 UNITS TIDWMEALS SQ ; Start 09/10/16 at 08:00 Dextrose (Dextrose 50%-Water Syringe) 12.5 gm PRN Q15MIN PRN IV SEE COMMENTS; Start 09/09/16 at 22:15 Ondansetron HCl (Zofran) 4 mg PRN Q6HRS PRN IV NAUSEA/VOMITING; Start 09/10/16 at 09:26 Acetaminophen (Tylenol) 500 mg PRN Q6HRS PRN PO MILD PAIN / TEMP; Start at 09:30 Rivaroxaban (Xarelto) 20 mg DAILYWSUP PO ; Start 09/11/16 at 17:00 Active Scripts Active Xarelto (Rivaroxaban) 20 Mg Tablet 20 Mg PO DAILY Reported Seroquel (Quetiapine Fumarate) 50 Mg Tablet 1 Tab PO QHS Trazodone Hcl 100 Mg Tablet 1 Tab PO QHS Levemir Flextouch (Insulin Detemir) 100 Unit/1 Ml Insuln.pen 35 Unit SQ HS Lisinopril 10 Mg Tablet 1 Tab PO DAILY Celexa (Citalopram Hydrobromide) 40 Mg Tablet 1 Tab PO DAILY08 Furosemide 20 Mg Tablet 10 Mg PO DAILY08 Proventil Hfa Inhaler (Albuterol Sulfate) 6.7 Gm Hfa.aer.ad 1 Puff IH Vitals/I & O Vital Sign - Last 24 Hours 09/09/16 09/09/16 09/09/16 09/09/16 17:40 18:54 18:54 19:30 Temp 98.2 98.2 Pulse 93 90 92 97 Resp 16 20 20 22 B/P 129/59 119/61 133/64 126/68 Pulse Ox 96 98 97 97 O2 Delivery Room Air Room Air Room Air Room Air 09/09/16 09/09/16 09/09/16 09/09/16 20:52 22:02 22:36 23:10 Resp 20 20 20 O2 Delivery Room Air Room Air O2 Flow Rate 93.0 09/09/16 09/10/16 09/10/16 09/10/16 23:38 00:58 03:00 07:00 Temp 98.3 98.3 97.7 98.3 98.3 97.7 Pulse 94 84 67 77 Resp 18 18 12 B/P 96/59 104/57 117/61 118/69 Pulse Ox 93 91 96 O2 Delivery Room Air 09/10/16 09/10/16 09/10/16 09/10/16 07:35 08:00 08:05 08:26 Pulse 77 Resp 20 B/P 118/69 Pulse Ox 96 O2 Delivery Room Air Room Air Room Air O2 Flow Rate 98.0 98.0 98.0 09/10/16 11:00 Temp 97.5 97.5 Pulse 80 Resp 14 B/P 106/70 Pulse Ox 96 O2 Delivery Room Air Intake and Output 09/09/16 09/09/16 09/10/16 15:00 23:00 07:00 Output Total 0 ml Balance 0 ml LIZETH PERRY MD Sep 10, 2016 14:04
[2016-09-10] MEDS ORDERED: NICOTINE 21MG PATCH. TD PRN (14:15)
[2016-09-10] MEDS: INSULIN DETEMIR 300 UNITS/3 ML INSULN.PEN. SQ SCH (21:00)
[2016-09-10] MEDS: traZODone 100 MG TABLET. PO SCH (21:00)
[2016-09-10] MEDS: QUEtiapine 25 MG TABLET. PO SCH (21:00)
[2016-09-11] MEDS: INSULIN ASPART 300 UNITS/3 ML INSULN.PEN SQ SCH ×2 (08:00→12:00)
[2016-09-11 08:04] VITALS: BP 148/79
[2016-09-11] MEDS ORDERED: REGADENOSON 0.4 MG/5 ML DISP.SYRIN. IV ONE (10:00)
[2016-09-11] MEDS: CITALOPRAM 20 MG TABLET. PO SCH (10:27)
[2016-09-11] MEDS: LISINOPRIL 10 MG TABLET PO SCH (10:28)
[2016-09-11] MEDS: FUROSEMIDE 20 MG TABLET PO SCH (10:28)
[2016-09-11 10:59] VITALS: BP 128/74
--- NOTE | 2016-09-11 11:23 | PDOC ---
PROGRESS NOTES Subjective Subjective PATIENT LEFT AMA - DID NOT SEE PATIENT MPI NEGATIVE FOR ISCHEMIA Objective Objective Vital Signs Date Time Temp Pulse Resp B/P Pulse Ox O2 Delivery O2 Flow Rate FiO2 09/11/16 10:28 97 148/79 09/11/16 08:04 97.7 24 91 Room Air 97.7 09/11/16 08:00 98.0 Intake and Output 09/11/16 07:00 Intake Total 540 ml Output Total 1450 ml Balance -910 ml Intake Oral 540 ml Output Urine Total 1450 ml # Bowel Movements 1 Assessment Assessment Problems Medical Problems: (1) Chest pain Status: Acute Plan Plan of Care Problems Medical Problems: (1) Chest pain Status: Acute Comment Review of Relevant I have reviewed the following items kalhil (where applicable) has been applied. Labs Laboratory Tests Test 09/10/16 17:09 09/10/16 20:06 09/11/16 08:10 Glucose (Fingerstick) 83mg/dL (70-99) 88mg/dL (70-99) 88mg/dL (70-99) Medications Current Medications Nicotine (Nicoderm Cq 21mg) 1 patch PRN DAILY PRN TD SMOKING CESSATION; Start 09/10/16 at 14:15 Regadenoson (Lexiscan) 0.4 mg 1X ONCE IV Last administered on 09/11/16t 10:14; Start 09/11/16 at 10:00; Stop 09/11/16 at 10:02; Status DC Rivaroxaban (Xarelto) 20 mg DAILYWSUP PO ; Start 09/11/16 at 17:00 Vitals/I & O Vital Sign - Last 24 Hours 09/10/16 09/10/16 09/10/16 09/10/16 15:00 19:00 20:00 23:00 Temp 97.5 97.9 97.9 97.5 97.9 97.9 Pulse 87 87 90 Resp 12 20 20 B/P 120/64 135/54 120/69 Pulse Ox 95 95 96 O2 Delivery Room Air Room Air Room Air Room Air 09/11/16 09/11/16 09/11/16 08:00 08:04 10:28 Temp 97.7 97.7 Pulse 97 97 Resp 24 B/P 148/79 148/79 Pulse Ox 91 O2 Delivery Room Air Room Air O2 Flow Rate 98.0 Intake and Output 09/10/16 09/10/16 09/11/16 15:00 23:00 07:00 Intake Total 240 ml 300 ml Output Total 800 ml 650 ml Balance -800 ml -410 ml 300 ml EMILEE GOLDSMITH MD Sep 11, 2016 11:23
--- NOTE | 2016-09-11 15:21 | PDOC ---
Provider Note Provider Note Pt left ama - could not wait for mPI I was not able to see pt today Dw Rn LIZETH Boone MD Sep 11, 2016 15:21
[2016-09-11] MEDS ORDERED: RIVAROXABAN 10 MG TABLET. PO SCH (17:00)
--- NOTE | 2016-09-11 17:31 | RAD ---
APPROVED REPORT Test Type: Pharmacological Stress Nurse/Tech: Tamym Nance RN Test Indications: chest pain Cardiac History: see ehr Medications: see ehr Medical History: see ehr Resting ECG: SR Resting Heart Rate: 92 bpm Resting Blood Pressure: 144/78mmHg Pretest Chest Pain: None Nurse/Tech Notes Lungs CTA, S1, S2 Consent: The procedure was explained to the patient in lay terms. Informed consent was witnessed. Bhupinder eout was entered into [employer]. History and Stress Test performed by Charlotte MurphyNТатьяна Pharm. Details Pharmacologic stress testing was performed using 0.4mg per 5ml of regadenoson given intravenously ove r 7-10 seconds. Stress Symptoms No chest pain or symptoms. POST EXERCISE Reason for Termination: Infusion complete Max HR: 108 bpm Max Blood Pressure: 132/70mmHg Blood Pressure response to exercise: Normal blood pressure response during stress. Chest Pain: No. Arrhythmia: No. ST Change: No. INTERPRETATION Stress EKG Conclusion: Baseline EKG showed sinus rhythm. No ischemic changes at peak stress. No arr hythmias. Imaging Protocol IMAGE PROTOCOL: Stress Tc-99m/rest Tc-99m 2 days Rest: Stress: Viability: Radiopharm.Tc99m Sestamibi [id number] Duration 10min. Img Date 09/11/2016 Inj-Img [id number]. STRESS DATA End Diast. Vol.148.0mlAv. Heart Rate95.0bpm End Syst. Vol.41.0mlCO Index BSA0.0L/min Myocardial Hwvj617.0gEject. Gqiudmln73.0% Stress Rates Pk. Fill Rate3.74EDV/secLVtime Pk. Fill 175.04msec Pk. Empty Rate4.16ESV/secLVtime Pk. Iucxo325.65msec / Pk. Fill1.02EDV/sec Stress Scores Regional WT2.00Summed WT8.00 Regional WM0.00Summed WM0.00 Study quality was good. Left Ventricular size was at Rest and Stress. Lung uptake was Normal. Left Ventricular ejection fraction is 72%. LV Perfusion Stress scintigraphic images did not show any significant perfusion defects. Wall Motion Normal regional wall motion. LV Perf. Quant 17 Seg. SSS3.00 Stress Defect Extent (% LAD)0.00Rest Defect Extent (% LAD)Rev. Defect Extent (% LAD)0.00 Stress Defect Extent (% LCX) 21.30Rest Defect Extent (% LCX)Rev. Defect Extent (% LCX)0.00 Stress Defect Extent (% RCA)0.00Rest Defect Extent (% RCA)Rev. Defect Extent (% RCA)0.00 Stress Defect Extent (% ALEXA)3.70Rest Defect Extent (% ALEXA)Rev. Defect Extent (% ALEXA)0.00 Conclusion 1. Regadenoson cardioisotope stress test did not show any evidence of ischemia or infarct. 2. Normal left ventricular systolic function with ejection fraction calculated at 72%. 3. Low risk for cardiac events.
== END 2016-09-11 14:58 | disposition left against medical advice (07) ==
LOC: ER 17:31 → 5 NORTH 19:28
PROVIDERS: ADMIT Internal Medicine; ATTEND Internal Medicine
DX: R07.9 Chest pain, unspecified (principal); E11.9 Type 2 diabetes mellitus without complications; E44.1 Mild protein-calorie malnutrition; E66.01 Morbid (severe) obesity due to excess calories; E78.5 Hyperlipidemia, unspecified; F17.200 Nicotine dependence, unspecified, uncomplicated; I10 Essential (primary) hypertension; I25.119 Atherosclerotic heart disease of native coronary artery with unspecified angina pectoris; F43.10 Post-traumatic stress disorder, unspecified; G47.00 Insomnia, unspecified; I25.2 Old myocardial infarction; R65.10 Systemic inflammatory response syndrome (SIRS) of non-infectious origin without acute organ dysfunction; Z86.718 Personal history of other venous thrombosis and embolism; Z90.49 Acquired absence of other specified parts of digestive tract; Z96.659 Presence of unspecified artificial knee joint
CPT/HCPCS: 36415; 71010; 71275; 78452; 80048; 80053; 80061; 80076; 82947; 83036; 83690; 83880; 84484; 85027; 87641; 93005; 93017; 96372; 96374; 96376; 99285; A9500; G0378; G0481; J1815; J2270; J2785; Q9967; 96375; G0379

== ENCOUNTER 2016-09-11 15:29 | Emergency (ER) | payer OTHER ==
[~2016-09-11] VITALS: Ht 182.9 cm; Wt 154.2 kg
[~2016-09-11 15:29] MED LIST changes: -ASPIRIN CHEWABLE 81 MG TABLET. PO ONE; +QUET50TA5 PO; +TRAZ100T12 PO
[2016-09-11 15:38] VITALS: BP 125/77
--- NOTE | 2016-09-11 15:59 | PHYS DOC ---
Past Medical History Past Medical History: Anxiety, CAD, COPD, Depression, Diabetes-Type II, DVT, Hypertension, Kidney Infection, SC, Seizure, Vascular Disease Additional Past Medical Histor: TBI; PTSD; neuropathy, SI attempts in past, meth abuse, UMBILICAL HERNIA Past Surgical History: Appendectomy, Cholecystectomy, Knee Replacement, Other Additional Past Surgical Histo: hernia, left knee Alcohol Use: Sober Drug Use: Methamphetamine Social History Narrative: Pt states last used meth 42 days ago Adult General Chief Complaint Chief Complaint: ANXIETY/PANIC ATTACK HPI HPI 51-year-old male returns to the emergency department after he left AGAINST MEDICAL ADVICE. He states he was being held secondary to methamphetamine abuse as well as some chest pain. He is not had any chest pain during his stay in the hospital he was able to walk outside across a parking lot with no symptoms to smoke cigarettes and then walked all the way back again without any symptoms. He states he feels like he is having anxiety. When the discussion came up about coming back into the hospital the patient adamantly refused. [] Review of Systems Review of Systems Constitutional: Denies fever or chills [] Eyes: Denies change in visual acuity, redness, or eye pain [] HENT: Denies nasal congestion or sore throat [] Respiratory: Denies cough or shortness of breath [] Cardiovascular: No additional information not addressed in HPI [] GI: Denies abdominal pain, nausea, vomiting, bloody stools or diarrhea [] : Denies dysuria or hematuria [] Musculoskeletal: Denies back pain or joint pain [] Integument: Denies rash or skin lesions [] Neurologic: Denies headache, focal weakness or sensory changes [] Endocrine: Denies polyuria or polydipsia [] Allergies Allergies Allergies Coded Allergies Type Severity Reaction Last Updated Verified Sulfa (Sulfonamide Antibiotics) Allergy Severe sob 03/18/16 Yes ketorolac tromethamine Allergy Intermediate hives 03/18/16 Yes Physical Exam Physical Exam Constitutional: Well developed, well nourished, no acute distress, non-toxic appearance. [] HENT: Normocephalic, atraumatic, bilateral external ears normal, oropharynx moist, no oral exudates, nose normal. [] Eyes: PERRLA, EOMI, conjunctiva normal, no discharge. [] Neck: Normal range of motion, no tenderness, supple, no stridor. [] Cardiovascular:Heart rate regular rhythm, no murmur [] Lungs & Thorax: Bilateral breath sounds clear to auscultation [] Abdomen: Bowel sounds normal, soft, no tenderness, no masses, no pulsatile masses. [] Skin: Warm, dry, no erythema, no rash. [] Back: No tenderness, no CVA tenderness. [] Extremities: Chronic lower extremity edema with chronic venous stasis changes. [ ] Neurologic: Alert and oriented X 3, normal motor function, normal sensory function, no focal deficits noted. [] Psychologic: Anxious [] Current Patient Data Vital Signs Vital Signs Date Time Temp Pulse Resp B/P Pulse Ox O2 Delivery O2 Flow Rate FiO2 09/11/16 15:38 98.4 105 20 125/77 97 Room Air 98.4 EKG EKG [] Radiology/Procedures Radiology/Procedures [] Course & Med Decision Making Course & Med Decision Making Pertinent Labs and Imaging studies reviewed. (See chart for details) [ED course: Evaluation reveals a 51-year-old anxious male but in no significant distress. Patient wants to be discharged to go back to his rehabilitation facility and I think at this point that's fine. I do not believe the patient needs to be admitted back to the hospital.] Dragon Disclaimer Dragon Disclaimer This electronic medical record was generated, in whole or in part, using a voice recognition dictation system. Departure Departure Impression: Primary Impression: Anxiety Disposition: 01 HOME, SELF-CARE Condition: STABLE Referrals: ZECHARIAH MARCUM MD (PCP) Patient Instructions: Anxiety and Panic Attacks Additional Instructions: I think you are medically stable to return to [place]. Return to the emergency department with any new or concerning symptoms NAOMIE LOCO DO Sep 11, 2016 15:59
== END 2016-09-11 16:23 | disposition home or self-care (01) ==
LOC: ER 15:29
DX: F41.9 Anxiety disorder, unspecified (principal); F15.10 Other stimulant abuse, uncomplicated; F41.0 Panic disorder [episodic paroxysmal anxiety]; F32.9 Major depressive disorder, single episode, unspecified; F43.10 Post-traumatic stress disorder, unspecified; I10 Essential (primary) hypertension; E11.40 Type 2 diabetes mellitus with diabetic neuropathy, unspecified; I25.10 Atherosclerotic heart disease of native coronary artery without angina pectoris; J44.9 Chronic obstructive pulmonary disease, unspecified; Z86.718 Personal history of other venous thrombosis and embolism; Z98.890 Other specified postprocedural states; Z86.73 Personal history of transient ischemic attack (TIA), and cerebral infarction without residual deficits; Z88.2 Allergy status to sulfonamides; Z88.6 Allergy status to analgesic agent
CPT/HCPCS: 99284

== ENCOUNTER 2016-10-05 10:15 | Emergency (ER) | payer OTHER ==
[~2016-10-05] VITALS: Ht 182.9 cm; Wt 163.3 kg
[2016-10-05 10:38] VITALS: BP 120/68
--- NOTE | 2016-10-05 10:55 | PHYS DOC ---
Past Medical History Past Medical History: Anxiety, CAD, COPD, Depression, Diabetes-Type II, DVT, Hypertension, Kidney Infection, [place], Seizure, Vascular Disease Additional Past Medical Histor: TBI; PTSD; neuropathy, SI attempts in past, meth abuse, UMBILICAL HERNIA Past Surgical History: Cholecystectomy, Knee Replacement, Tonsillectomy, Other Additional Past Surgical Histo: hernia, left knee Alcohol Use: Sober Drug Use: Methamphetamine Social History Narrative: sober x 50 days Adult General Chief Complaint Chief Complaint: SHOULDER INJURY HPI HPI Patient is a 51 year old male reports emergency room today with complaint of left shoulder pain secondary to a slip and near fall 5 days ago. He reports that his shoulder began hurting 3 days ago. Patient is right-hand dominant. He denies any previous injuries to his left shoulder. He denies neck pain. Denies focal areas of weakness or altered sensation. Patient states is been taking ibuprofen at home without any resolution of his pain. Patient has not followed up with a care provider for evaluation of the shoulder. Review of Systems Review of Systems Constitutional: Denies fever or chills [] Eyes: Denies change in visual acuity, redness, or eye pain [] HENT: Denies nasal congestion or sore throat [] Respiratory: Denies cough or shortness of breath [] Cardiovascular: No additional information not addressed in HPI [] GI: Denies abdominal pain, nausea, vomiting, bloody stools or diarrhea [] : Denies dysuria or hematuria [] Musculoskeletal: Denies back pain or joint pain [] Integument: Denies rash or skin lesions [] Neurologic: Denies headache, focal weakness or sensory changes [] Endocrine: Denies polyuria or polydipsia [] Allergies Allergies Allergies Coded Allergies Type Severity Reaction Last Updated Verified Sulfa (Sulfonamide Antibiotics) Allergy Severe sob 03/18/16 Yes ketorolac tromethamine Allergy Intermediate hives 03/18/16 Yes I S O L A T I O N *CONTACT* Allergy Unknown 09/12/16 Yes Physical Exam Physical Exam Constitutional: Well developed, well nourished, no acute distress, non-toxic appearance. [] HENT: Normocephalic, atraumatic, bilateral external ears normal, oropharynx moist, no oral exudates, nose normal. [] Eyes: PERRLA, EOMI, conjunctiva normal, no discharge. [] Neck: Normal range of motion, no tenderness, supple, no stridor. [] Cardiovascular:Heart rate regular rhythm, no murmur [] Lungs & Thorax: Bilateral breath sounds clear to auscultation [] Abdomen: Bowel sounds normal, soft, no tenderness, no masses, no pulsatile masses. [] Skin: Warm, dry, no erythema, no rash. [] Back: No tenderness, no CVA tenderness. [] Extremities: Left shoulder is normal in appearance. There is tenderness to palpation to the anterior lateral aspect of left shoulder without any palpable defect, deformity, instability or crepitus. There is no pain along the clavicle or the before meals joint. There is no palpable deformity in this region. Patient does not have any pain in his left upper arm, elbow, forearm, wrist or hand. Left upper extremity is warm and dry, neurovascularly intact with capillary refill less than 2 seconds in the fingers. Strength is equal symmetric bilaterally. Neurologic: Alert and oriented X 3, normal motor function, normal sensory function, no focal deficits noted. [] Psychologic: Affect normal, judgement normal, mood normal. [] Current Patient Data Vital Signs Vital Signs Date Time Temp Pulse Resp B/P Pulse Ox O2 Delivery O2 Flow Rate FiO2 10/05/16 10:38 97.5 97 18 99 Room Air 97.5 EKG EKG [] Radiology/Procedures Radiology/Procedures [facility] [address] [place], [place] [id number] IMAGING REPORT Signed PATIENT: LEONEL GODWIN ACCOUNT: [id number] : 1965 LOCATION: ER AGE: 51 SEX: M EXAM STATUS: REG ER ORD. PHYSICIAN: QUANG GONGORA REASON: pain after near fall 3 days ago PROCEDURE: SHOULDER 2+V LEFT Indication pain. Internally and externally rotated views of the left shoulder as well as a Y view were obtained. There are chronic degenerative changes at the AC joint. The glenohumeral joint appears unremarkable on plain films. Acute bony finding is not seen. Vascular coil is noted in the left hemithorax. IMPRESSION: No acute bony finding DICTATED and SIGNED BY: MARIANELA COOPER MD DATE: 10/05/16 0950 CC: QUANG GONGORA; ZECHARIAH MARCUM MD; NON,STAFF ~ Course & Med Decision Making Course & Med Decision Making Pertinent Labs and Imaging studies reviewed. (See chart for details) [] Dragon Disclaimer Dragon Disclaimer This electronic medical record was generated, in whole or in part, using a voice recognition dictation system. Departure Departure Impression: Primary Impression: Left shoulder strain Disposition: HOME, SELF-CARE Condition: GOOD Referrals: ZECHARIAH MARCUM MD (PCP) Patient Instructions: Shoulder Pain, [id number] Additional Instructions: 1. The x-rays of your shoulder here today show no broken bones or dislocation. 2. Take the medication as prescribed. 3. Follow-up with your primary care doctor within 5-7 days. 4. Review the discharge instructions provided for self-care and reasons to return to the emergency department. Scripts Orphenadrine Citrate 100 Mg Tablet.er1 Tab PO BID muscle relaxer #14 TAB Ref 1 Prov:QUANG GONGORA 10/05/16 Hydrocodone/Apap 5-325 ([place] 5-325 Tablet)1 Each Tablet1 Tab PO PRN Q6HRS PRN PAIN #10 TAB Ref 0 Prov:QUANG GONGORA 10/05/16 QUANG GONGORA October 05, 2016 10:55
--- NOTE | 2016-10-05 11:20 | RAD ---
Indication pain. Internally and externally rotated views of the left shoulder as well as a Y view were obtained. There are chronic degenerative changes at the AC joint. The glenohumeral joint appears unremarkable on plain films. Acute bony finding is not seen. Vascular coil is noted in the left hemithorax. IMPRESSION: No acute bony finding
[2016-10-05] MEDS ORDERED: HYDR-971 PO (11:44)
[2016-10-05] MEDS ORDERED: ORPH100T PO (11:44)
== END 2016-10-05 11:58 | disposition home or self-care (01) ==
LOC: ER 10:15
DX: S46.912A Strain of unspecified muscle, fascia and tendon at shoulder and upper arm level, left arm, initial encounter (principal); F41.9 Anxiety disorder, unspecified; I25.10 Atherosclerotic heart disease of native coronary artery without angina pectoris; J44.9 Chronic obstructive pulmonary disease, unspecified; E11.40 Type 2 diabetes mellitus with diabetic neuropathy, unspecified; F32.9 Major depressive disorder, single episode, unspecified; I10 Essential (primary) hypertension; I25.2 Old myocardial infarction; F15.10 Other stimulant abuse, uncomplicated; F43.10 Post-traumatic stress disorder, unspecified; Z87.820 Personal history of traumatic brain injury; Z90.49 Acquired absence of other specified parts of digestive tract; Z96.659 Presence of unspecified artificial knee joint; Z88.2 Allergy status to sulfonamides; Z86.718 Personal history of other venous thrombosis and embolism; Z88.8 Allergy status to other drugs, medicaments and biological substances; Z91.041 Radiographic dye allergy status; W01.0XXA Fall on same level from slipping, tripping and stumbling without subsequent striking against object, initial encounter; Y93.89 Activity, other specified; Y92.89 Other specified places as the place of occurrence of the external cause; Y99.8 Other external cause status
CPT/HCPCS: 73030; 99284

== ENCOUNTER 2016-10-15 21:18 | Emergency (ER) | payer OTHER ==
[~2016-10-15] VITALS: Ht 182.9 cm; Wt 163.3 kg
[~2016-10-15 21:18] MED LIST changes: +ORPH100T PO
[2016-10-15 21:20] VITALS: BP 144/82
[2016-10-15 21:48] LABS: BASO # 0.1 x10^3/uL (0.0-0.2); BASO % 1 % (0-3); EOS % 4 % (0-3); HEMATOCRIT 41.4 % (39.0-53.0); HEMOGLOBIN 14.3 g/dL (13.0-17.5); LYMPH # 2.1 x10^3/uL (1.0-4.8); LYMPH % 29 % (24-48); MEAN CORPUSCULAR HEMOGLOBIN 29 pg (25-35); MEAN CORPUSCULAR HGB CONC 35 g/dL (31-37); MEAN CORPUSCULAR VOLUME 85 fL (79-100); MONO % 11 % (0-9); NEUT % 56 % (31-73); PLATELET COUNT 273 x10^3/uL (140-400); RED CELL DISTRIBUTION WIDTH 16.6 % (11.5-14.5); WHITE BLOOD COUNT 7.1 x10^3/uL (4.0-11.0)
--- NOTE | 2016-10-15 21:49 | PHYS DOC ---
Past Medical History Past Medical History: Anxiety, CAD, COPD, Depression, Diabetes-Type II, DVT, Hypertension, Kidney Infection, [place], Seizure, Vascular Disease Additional Past Medical Histor: TBI; PTSD; neuropathy, SI attempts in past, meth abuse, UMBILICAL HERNIA Past Surgical History: Cholecystectomy, Knee Replacement, Tonsillectomy, Other Additional Past Surgical Histo: hernia, left knee Alcohol Use: Sober Drug Use: Methamphetamine Adult General Chief Complaint Chief Complaint: LOWER EXTREMITY SWELLING HPI HPI 51-year-old male presenting the emergency department with bilateral leg swelling and open draining wound in his left lower leg. He has a history of heart failure and takes a "water pill", but he does not remember the dosage. His leg swelling is been present for 1-2 weeks. The wound began draining approximately 2 days ago. It drains a clear fluid. He denies redness of the extremity. He has chronic venous stasis of both extremities. Location left leg. Duration intermittent. No alleviating factors. Review of systems is negative for nausea vomiting diaphoresis fevers or chills. He describes having intermittent chest pain but reports this is been present for more than 7 days he describes it as a sharp pain that is worse with inspiration nonradiating and mild. All other review of systems is negative unless otherwise noted in history of present illness. Review of Systems Review of Systems SEE ABOVE. Allergies Allergies Allergies Coded Allergies Type Severity Reaction Last Updated Verified Sulfa (Sulfonamide Antibiotics) Allergy Severe sob 03/18/16 Yes ketorolac tromethamine Allergy Intermediate hives 03/18/16 Yes I S O L A T I O N *CONTACT* Allergy Unknown 09/12/16 Yes Physical Exam Physical Exam Constitutional: Well developed, well nourished, no acute distress, non-toxic appearance. [] HENT: Normocephalic, atraumatic, bilateral external ears normal, oropharynx moist, no oral exudates, nose normal. [] Eyes: PERRLA, EOMI, conjunctiva normal, no discharge. Neck: Normal range of motion, no tenderness, supple, no stridor. [] Cardiovascular:Heart rate regular rhythm, no murmur Lungs & Thorax: Bilateral breath sounds clear to auscultation . No wheezing or crackles present. Abdomen: Bowel sounds normal, soft, no tenderness, no masses, no pulsatile masses. [] Skin: Warm, dry, no erythema, no rash. Back: No tenderness, no CVA tenderness. [] Extremities: No tenderness, no cyanosis, no clubbing, ROM intact, 3+ edema present. There is a 1 cm wound on the anterior portion the patient's left lower extremity. It drains a very clear liquids. Not warm to touch when compared to the contralateral leg. Neurovascularly intact bilaterally. Neurologic: Alert and oriented X 3, normal motor function, normal sensory function, no focal deficits noted. [] Psychologic: Affect normal, judgement normal, mood normal. Current Patient Data Lab Values Laboratory Tests Test 10/15/16 21:40 10/15/16 22:00 White Blood Count 7.1 x10^3/uL (4.0-11.0) Red Blood Count 4.90 x10^6/uL (4.30-5.70) Hemoglobin 14.3 g/dL (13.0-17.5) Hematocrit 41.4 % (39.0-53.0) Mean Corpuscular Volume 85 fL (79-100) Mean Corpuscular Hemoglobin 29 pg (25-35) Mean Corpuscular Hemoglobin Concent 35 g/dL (31-37) Red Cell Distribution Width 16.6 % (11.5-14.5) H Platelet Count 273 x10^3/uL (140-400) Neutrophils (%) (Auto) 56 % (31-73) Lymphocytes (%) (Auto) 29 % (24-48) Monocytes (%) (Auto) 11 % (0-9) H Eosinophils (%) (Auto) 4 % (0-3) H Basophils (%) (Auto) 1 % (0-3) Neutrophils # (Auto) 4.0 x10^3uL (1.8-7.7) Lymphocytes # (Auto) 2.1 x10^3/uL (1.0-4.8) Monocytes # (Auto) 0.8 x10^3/uL (0.0-1.1) Eosinophils # (Auto) 0.3 x10^3/uL (0.0-0.7) Basophils # (Auto) 0.1 x10^3/uL (0.0-0.2) Sodium Level 141 mmol/L (136-145) Potassium Level 4.5 mmol/L (3.5-5.1) Chloride Level 104 mmol/L (98-107) Carbon Dioxide Level 29 mmol/L (21-32) Anion Gap 8 (6-14) Blood Urea Nitrogen 17 mg/dL (8-26) Creatinine 1.2 mg/dL (0.7-1.3) Estimated GFR (Cockcroft-Gault) 63.3 Glucose Level 112 mg/dL (70-99) H Calcium Level 9.3 mg/dL (8.5-10.1) Total Bilirubin 0.3 mg/dL (0.2-1.0) Direct Bilirubin 0.1 mg/dL (0.0-0.2) Aspartate Amino Transferase (AST) 22 U/L (15-37) Alanine Aminotransferase (ALT) 30 U/L (16-63) Alkaline Phosphatase 92 U/L (46-116) Troponin I Quantitative < 0.017 ng/mL (0.000-0.055) DC-Nxt-O-Type Natriuretic Peptide 22 pg/mL (0-124) Total Protein 7.5 g/dL (6.4-8.2) Albumin 3.3 g/dL (3.4-5.0) L Lipase 181 U/L (73-393) Lactic Acid Level 1.3 mmol/L (0.4-2.0) Laboratory Tests 10/15/16 21:40 Laboratory Tests 10/15/16 21:40 EKG EKG [] Radiology/Procedures Radiology/Procedures Chest x-ray reviewed by myself shows no obvious infiltrate or pneumothorax present. No obvious acute cardiopulmonary process present. Course & Med Decision Making Course & Med Decision Making Pertinent Labs and Imaging studies reviewed. (See chart for details) [] 51-year-old gentleman reporting increase in his bilateral leg swelling with a small wound draining a clear substance over the past few days. Vital signs. Pertinent physical exam findings showed that the patient's lower sternum it is had edema without evidence of cellulitis. The wound was about 1 cm in diameter and draining a clear substance. No fluctuant masses present. No bulla present to palpation. EKG was obtained which was unremarkable. Blood work obtained. His extremities clinically did not appear to be infected. I recommended he increase his water pill however he did not remember his dose so I was unable to formally do this for him. I recommended his primary care physician do this over the next day or 2. I also referred him to our wound clinic on Monday or Monday of next week. The patient was then discharged home in stable condition to follow up with their primary care physician over the next 2-3 days. They were to return if their symptoms worsened or if they were concerned for any reason. Face-to- face discharge instructions and return precautions were given. Patient's questions were answered to their satisfaction. Patient is comfortable plan. Dragon Disclaimer Dragon Disclaimer This electronic medical record was generated, in whole or in part, using a voice recognition dictation system. Departure Departure Impression: Primary Impression: Pedal edema Additional Impression: Wound of left lower extremity Disposition: HOME, SELF-CARE Condition: STABLE Referrals: ZECHARIAH MARCUM MD (PCP) Patient Instructions: Peripheral Edema Additional Instructions: Thank you for allowing us to participate in your care today. Follow up with the wound clinic on mon or . contact information below: [facility] has recently opened the first phase of its advanced Wound Care Center, providing much needed expert wound care for area patients close to home. The Center, located in [address] of the [facility] on the [facility], the facility includes four examination rooms where patients receive care Mondays through Fridays, 8 a.m. to 4 p.m. Patient appointments can be scheduled at [phone]. Followup with your primary care physician in 3 days if your symptoms do not improve. If you do not have a primary care provider you can ask for a list of our primary care providers. Return to the emergency department you have any new or concerning findings. This should be evaluated by the primary care physician and any necessary consulting services for continued management within a few days after discharge. Return to emergency room if you have any new or concerning symptoms including but not limited to fever, chills, nausea, vomiting, intractable pain, any new rashes, chest pain, shortness of air, uncontrolled bleeding, difficulty breathing, and/or vision loss. Problem Qualifiers Additional Impression: Wound of left lower extremity Encounter type: initial encounter Qualified Codes: S81.802A - Unspecified open wound, left lower leg, initial encounter AKANKSHA PHELPS MD October 15, 2016 21:49
[2016-10-15 22:02] LABS: CALCIUM 9.3 mg/dL (8.5-10.1); CREATININE 1.2 mg/dL (0.7-1.3); GFR 63.3; POTASSIUM 4.5 mmol/L (3.5-5.1)
[2016-10-15 22:08] LABS: ALBUMIN 3.3 g/dL (3.4-5.0); DIRECT BILIRUBIN 0.1 mg/dL (0.0-0.2); TOTAL BILIRUBIN 0.3 mg/dL (0.2-1.0); TOTAL PROTEIN 7.5 g/dL (6.4-8.2)
--- NOTE | 2016-10-16 06:52 | EKG ---
[facility] [address] [place] [address] Test Date: 2016-10-15 Test Time: 21:44:31 Pat Name: LEONEL GODWIN Department: Room: Gender: M [employer] Order Clerk: : 1965 Requested By: AKANKSHA PHELPS Order Number: [id number] Reading MD: Curly Cadet Measurements Intervals [place] Rate: 86 P: 66 UT: 142 QRS: 56 QRSD: 96 T: 48 QT: 366 QTc: 441 Interpretive Statements SINUS RHYTHM Electronically Signed On 10-18-2016 9:53:31 CDT by Curly Cadet
--- NOTE | 2016-10-16 08:09 | RAD ---
Examination: Single frontal view the chest History: History of chest pain Comparison: 09/09/2016 Findings: The cardiomediastinal silhouette grossly appears unremarkable. There is no acute infiltrate or visualized pneumothorax identified. Metallic coils project in the left lower chest region similar to prior exam. Impression: No acute cardiopulmonary findings
== END 2016-10-15 23:59 | disposition home or self-care (01) ==
LOC: ER 21:18
DX: S81.802A Unspecified open wound, left lower leg, initial encounter (principal); R60.9 Edema, unspecified; R07.89 Other chest pain; I87.8 Other specified disorders of veins; E11.40 Type 2 diabetes mellitus with diabetic neuropathy, unspecified; I25.10 Atherosclerotic heart disease of native coronary artery without angina pectoris; F43.10 Post-traumatic stress disorder, unspecified; J44.9 Chronic obstructive pulmonary disease, unspecified; Z86.718 Personal history of other venous thrombosis and embolism; F32.9 Major depressive disorder, single episode, unspecified; F41.9 Anxiety disorder, unspecified; I25.2 Old myocardial infarction; Z90.49 Acquired absence of other specified parts of digestive tract; Z87.820 Personal history of traumatic brain injury; F15.10 Other stimulant abuse, uncomplicated; Z96.659 Presence of unspecified artificial knee joint; I11.0 Hypertensive heart disease with heart failure; I50.9 Heart failure, unspecified; Z88.2 Allergy status to sulfonamides; Z91.041 Radiographic dye allergy status; Z88.8 Allergy status to other drugs, medicaments and biological substances; X58.XXXA Exposure to other specified factors, initial encounter; Y93.89 Activity, other specified; Y99.8 Other external cause status; Y92.89 Other specified places as the place of occurrence of the external cause
CPT/HCPCS: 36415; 71010; 80048; 80076; 83605; 83690; 83880; 84484; 85027; 93005; 99285-25

== ENCOUNTER → 2016-10-26 | Outpatient (CLI) | payer OTHER ==
[2016-10-15 21:20] VITALS: BP 144/82
== END | disposition home or self-care (01) ==
LOC: PMGWOUND 10:59
PROVIDERS: ATTEND Preventive Medicine Undersea and Hyperbaric Medicine
DX: I87.313 Chronic venous hypertension (idiopathic) with ulcer of bilateral lower extremity (principal); L97.821 Non-pressure chronic ulcer of other part of left lower leg limited to breakdown of skin; L97.811 Non-pressure chronic ulcer of other part of right lower leg limited to breakdown of skin; F17.210 Nicotine dependence, cigarettes, uncomplicated; F15.10 Other stimulant abuse, uncomplicated; E11.40 Type 2 diabetes mellitus with diabetic neuropathy, unspecified; F41.9 Anxiety disorder, unspecified; F32.9 Major depressive disorder, single episode, unspecified; J44.9 Chronic obstructive pulmonary disease, unspecified; E66.01 Morbid (severe) obesity due to excess calories; Z68.42 Body mass index [BMI] 45.0-49.9, adult; I25.2 Old myocardial infarction; I11.0 Hypertensive heart disease with heart failure; I50.9 Heart failure, unspecified; E78.5 Hyperlipidemia, unspecified; Z86.718 Personal history of other venous thrombosis and embolism; Z86.73 Personal history of transient ischemic attack (TIA), and cerebral infarction without residual deficits
CPT/HCPCS: 29581; 97597

== ENCOUNTER → 2016-10-28 | Outpatient (CLI) | payer OTHER ==
[2016-10-15 21:20] VITALS: BP 144/82
== END | disposition home or self-care (01) ==
LOC: PMGWOUND 10:47
PROVIDERS: ATTEND Preventive Medicine Undersea and Hyperbaric Medicine
DX: I87.313 Chronic venous hypertension (idiopathic) with ulcer of bilateral lower extremity (principal); L97.811 Non-pressure chronic ulcer of other part of right lower leg limited to breakdown of skin; L97.821 Non-pressure chronic ulcer of other part of left lower leg limited to breakdown of skin; J44.9 Chronic obstructive pulmonary disease, unspecified; E11.40 Type 2 diabetes mellitus with diabetic neuropathy, unspecified; F41.9 Anxiety disorder, unspecified; F32.9 Major depressive disorder, single episode, unspecified; E66.9 Obesity, unspecified; F17.200 Nicotine dependence, unspecified, uncomplicated; Z86.718 Personal history of other venous thrombosis and embolism; Z72.0 Tobacco use
CPT/HCPCS: 29581

== ENCOUNTER → 2016-11-02 | Outpatient (CLI) | payer OTHER ==
[2016-10-15 21:20] VITALS: BP 144/82
[~2016-11-02] MED LIST changes: +OXYC-323 PO
== END | disposition home or self-care (01) ==
LOC: PMGWOUND 09:20
PROVIDERS: ATTEND Preventive Medicine Undersea and Hyperbaric Medicine
DX: I87.313 Chronic venous hypertension (idiopathic) with ulcer of bilateral lower extremity (principal); L97.821 Non-pressure chronic ulcer of other part of left lower leg limited to breakdown of skin; L97.811 Non-pressure chronic ulcer of other part of right lower leg limited to breakdown of skin; F41.9 Anxiety disorder, unspecified; J44.9 Chronic obstructive pulmonary disease, unspecified; F32.9 Major depressive disorder, single episode, unspecified; E66.01 Morbid (severe) obesity due to excess calories; Z68.42 Body mass index [BMI] 45.0-49.9, adult; E11.40 Type 2 diabetes mellitus with diabetic neuropathy, unspecified; E78.5 Hyperlipidemia, unspecified; I25.2 Old myocardial infarction; I11.0 Hypertensive heart disease with heart failure; I50.9 Heart failure, unspecified; F15.10 Other stimulant abuse, uncomplicated; Z86.73 Personal history of transient ischemic attack (TIA), and cerebral infarction without residual deficits; F17.210 Nicotine dependence, cigarettes, uncomplicated; Z86.718 Personal history of other venous thrombosis and embolism
CPT/HCPCS: 29581; 97597

== ENCOUNTER 2016-11-03 14:16 | Emergency (ER) | payer OTHER ==
[~2016-11-03] VITALS: Ht 182.9 cm; Wt 154.2 kg
[~2016-11-03 14:16] MED LIST changes: -OXYC-323 PO
[2016-11-03] MEDS ORDERED: oxyCODONE/APAP 5/325 1 TAB TABLET PO ONE (14:30)
[2016-11-03 14:31] VITALS: BP 143/74
--- NOTE | 2016-11-03 14:34 | PHYS DOC ---
Past Medical History Past Medical History: Anxiety, CAD, COPD, Depression, Diabetes-Type II, DVT, Hypertension, Kidney Infection, [place], Seizure, Vascular Disease Additional Past Medical Histor: TBI; PTSD; neuropathy, SI attempts in past, meth abuse, UMBILICAL HERNIA Past Surgical History: Cholecystectomy, Knee Replacement, Tonsillectomy, Other Additional Past Surgical Histo: hernia, left knee Alcohol Use: Sober Drug Use: Methamphetamine Adult General Chief Complaint Chief Complaint: KNEE INJURY HPI HPI 51-year-old male who states he was stepping off the bus today and had not normal sensation to his left knee and he fell backwards onto his left side. He did not hit his head or having any loss consciousness. He localizes all his pain primary to the left lateral area of his knee. Pt has previous surgical scar from a left total knee replacement several years ago. Patient states he's had 2 left total knee replacements in the past. He is normally not dependent on any device to walk. He states he was previously cane dependent but now can walk on his own without difficulty. He states he has significant difficulty bearing weight on the left side and arrives by wheelchair. He rates the pain a 9 out of 10. He denies any other acute injury from his fall. He denies any chest pain or shortness of breath. He denies any abdominal pain. Patient is morbidly obese but in no acute distress upon my initial assessment. Review of Systems Review of Systems Constitutional: Denies fever or chills [] Eyes: Denies change in visual acuity, redness, or eye pain [] HENT: Denies nasal congestion or sore throat [] Respiratory: Denies cough or shortness of breath [] Cardiovascular: No additional information not addressed in HPI [] GI: Denies abdominal pain, nausea, vomiting, bloody stools or diarrhea [] : Denies dysuria or hematuria [] Musculoskeletal: Denies back pain, has joint pain [] Integument: Denies rash or skin lesions [] Neurologic: Denies headache, focal weakness or sensory changes [] Endocrine: Denies polyuria or polydipsia [] Current Medications Current Medications Current Medications Medications (Trade) Dose Ordered Sig/Krys Start Time Stop Time Status Last Admin Dose Admin Oxycodone/ Acetaminophen (Percocet 5/325) 2 tab 1X ONCE 11/03/16 14:30 11/03/16 14:33 DC 11/03/16 14:47 2 TAB Allergies Allergies Allergies Coded Allergies Type Severity Reaction Last Updated Verified Sulfa (Sulfonamide Antibiotics) Allergy Severe sob 03/18/16 Yes ketorolac tromethamine Allergy Intermediate hives 03/18/16 Yes I S O L A T I O N *CONTACT* Allergy Unknown 09/12/16 Yes Physical Exam Physical Exam Constitutional: Well developed, well nourished, no acute distress, non-toxic appearance. [] HENT: Normocephalic, atraumatic, bilateral external ears normal, oropharynx moist, no oral exudates, nose normal. [] Eyes: PERRLA, EOMI, conjunctiva normal, no discharge. [] Neck: Normal range of motion, no tenderness, supple, no stridor. [] Cardiovascular:Heart rate regular rhythm, no murmur [] Lungs & Thorax: Bilateral breath sounds clear to auscultation [] Abdomen: Bowel sounds normal, soft, no tenderness, no masses, no pulsatile masses. [] Skin: Warm, dry, no erythema, no rash. [] Back: No tenderness, no CVA tenderness. [] Extremities: Moderate tenderness to the left lateral knee area where a previous surgical scar is seen, no obvious deformity or swelling is seen, no cyanosis, no clubbing, ROM intact, no edema. [] Neurologic: Alert and oriented X 3, normal motor function, normal sensory function, no focal deficits noted. [] Psychologic: Affect normal, judgement normal, mood normal. [] Current Patient Data Vital Signs Vital Signs Date Time Temp Pulse Resp B/P (MAP) Pulse Ox O2 Delivery O2 Flow Rate FiO2 11/03/16 14:47 18 100 Room Air 11/03/16 14:31 98.4 112 98.4 EKG EKG [] Radiology/Procedures Radiology/Procedures Plain films of the left knee demonstrate no acute bony injury and hardware appropriately in place. As interpreted by the radiologist and myself. Course & Med Decision Making Course & Med Decision Making Pertinent Labs and Imaging studies reviewed. (See chart for details) This morbidly obese 51 yo male since after a left-sided knee injury. Plain films will be obtained. A dose of oral Percocet will be given for his pain due to his Toradol allergy. Pending a negative plain film of his left knee, the patient will be safe to be discharged with strict instruction to remain nonweightbearing as much as possible on the left side with orthopedic follow-up as he may require MRI for soft tissue injury to knee. Plain films of his left knee were negative. Patient will be placed in a knee immobilizer provided crutches as well as pain control. Follow-up with orthopedic surgery will be provided. Return precautions were provided and acknowledged by the patient. Dragon Disclaimer Dragon Disclaimer This electronic medical record was generated, in whole or in part, using a voice recognition dictation system. Departure Departure Impression: Primary Impression: Left knee injury Disposition: HOME, SELF-CARE Admitting Physician: Other Condition: STABLE Referrals: ZECHARIAH MARCUM MD (PCP) SUZANNE HARRINGTON MD Patient Instructions: Crutch Use, Dmta-na-Ixaa, Knee Pain, Zvks-mw-Dokv, RICE - Routine Care for Injuries, Qewz-wn-Hhqd Additional Instructions: Please keep your left knee elevated and remain non-weightbearing to the left knee as much as possible. Take your pain medication as prescribed. Follow up with the orthopedic surgeon in the next 2-3 days for your knee injury. Scripts Oxycodone/Apap 5-325 (PERCOCET 5-325 MG TABLET) 1 Each Tablet 1 TAB PO PRN Q6HRS Y for PAIN, #14 TAB 0 Refills Prov: TONY HOWARD DO 11/03/16 TONY HOWARD DO Nov 03, 2016 14:34
[2016-11-03] MEDS ORDERED: OXYC-323 PO (14:52)
--- NOTE | 2016-11-03 14:58 | RAD ---
Indication fall. Pain. AP and lateral views of the left knee were obtained. A total of 4 films were obtained. There is a total knee prosthesis. Long stem femoral and tibial components are noted. No fracture or acute bony finding is seen.
== END 2016-11-03 15:05 | disposition home or self-care (01) ==
LOC: ER 14:16
DX: S89.92XA Unspecified injury of left lower leg, initial encounter (principal); F41.9 Anxiety disorder, unspecified; I25.10 Atherosclerotic heart disease of native coronary artery without angina pectoris; J44.9 Chronic obstructive pulmonary disease, unspecified; F32.9 Major depressive disorder, single episode, unspecified; E11.21 Type 2 diabetes mellitus with diabetic nephropathy; I25.2 Old myocardial infarction; I10 Essential (primary) hypertension; F43.10 Post-traumatic stress disorder, unspecified; F15.10 Other stimulant abuse, uncomplicated; E66.01 Morbid (severe) obesity due to excess calories; Z68.42 Body mass index [BMI] 45.0-49.9, adult; Z91.041 Radiographic dye allergy status; Z88.6 Allergy status to analgesic agent; Z88.2 Allergy status to sulfonamides; Z90.49 Acquired absence of other specified parts of digestive tract; Z96.652 Presence of left artificial knee joint; Z86.718 Personal history of other venous thrombosis and embolism; Z87.820 Personal history of traumatic brain injury; W18.39XA Other fall on same level, initial encounter; Y93.89 Activity, other specified; Y92.89 Other specified places as the place of occurrence of the external cause; Y99.8 Other external cause status
CPT/HCPCS: 29505; 73562; 99284-25

== ENCOUNTER 2016-11-05 08:29 | Emergency (ER) | payer OTHER ==
[~2016-11-05] VITALS: Ht 180.3 cm; Wt 163.3 kg
[~2016-11-05 08:29] MED LIST changes: +OXYC-323 PO
[2016-11-05 08:30] VITALS: BP 150/69
[2016-11-05] MEDS ORDERED: oxyCODONE/APAP 5/325 1 TAB TABLET PO ONE (09:15)
--- NOTE | 2016-11-05 09:17 | ED.ADGEN ---
Past Medical History Past Medical History: Anxiety, CAD, COPD, Depression, Diabetes-Type II, DVT, Hypertension, Kidney Infection, [place], Seizure, Vascular Disease Additional Past Medical Histor: TBI; PTSD; neuropathy, SI attempts in past, meth abuse, UMBILICAL HERNIA Past Surgical History: Cholecystectomy, Knee Replacement, Tonsillectomy, Other Additional Past Surgical Histo: hernia, left knee Alcohol Use: Sober Drug Use: Methamphetamine Social History Narrative: 74 DAYS CLEAN OF 11/05/16 Adult General Chief Complaint Chief Complaint: KNEE INJURY HPI HPI Patient is a 51 year old man, history of morbid obesity, CHF, hypertension, hyperlipidemia, PTSD, chronic leg pain status post total knee arthroplasty on the left, who presents to the emergency department with complaint of persistent left knee pain. Patient was seen in the emergency department 2 days ago after he states he fell off the bus and struck his left knee. X-rays performed at that time which were unremarkable. Per the records, patient was given a crutches and knee immobilizer, the patient states he was only given crutches. He states that he has been attempting use the crutches at the [facility] where he has been staying, but is still expressing pain in the knee. He states that he took a dose of Percocet this morning and is still having pain. He denies any new injuries, any fevers or chills, any redness streaking or swelling to the knee, any chest pain or shortness breath or other complaints. He states that he is anxious today in the emergency department, to take his medications before he came in. Noted to be lightly tachycardic, initially in the low 100s. Blood pressure is 160s over 80s. He denies any other complaints. Review of Systems Review of Systems Constitutional: Denies fever or chills. [] Eyes: Denies change in visual acuity. [] HENT: Denies nasal congestion or sore throat. [] Respiratory: Denies cough or shortness of breath. [] Cardiovascular: Denies chest pain or edema. [] GI: Denies abdominal pain, nausea, vomiting, bloody stools or diarrhea. [] : Denies dysuria. [] Musculoskeletal: Denies back pain, pain in the left knee. Acute on chronic Integument: Denies rash. [] Neurologic: Denies headache, focal weakness or sensory changes. [] Endocrine: Denies polyuria or polydipsia. [] Lymphatic: Denies swollen glands. [] Psychiatric: Denies depression or anxiety. [] Current Medications Current Medications Current Medications Medications (Trade) Dose Ordered Sig/Krys Start Time Stop Time Status Last Admin Dose Admin Oxycodone/ Acetaminophen (Percocet 5/325) 1 tab 1X ONCE 11/05/16 09:15 11/05/16 09:16 DC 11/05/16 09:22 1 TAB Allergies Allergies Allergies Coded Allergies Type Severity Reaction Last Updated Verified Sulfa (Sulfonamide Antibiotics) Allergy Severe sob 03/18/16 Yes ketorolac tromethamine Allergy Intermediate hives 03/18/16 Yes I S O L A T I O N *CONTACT* Allergy Unknown 09/12/16 Yes Physical Exam Physical Exam Constitutional: Well developed, obese, no acute distress, non-toxic appearance. [] HENT: Normocephalic, atraumatic, bilateral external ears normal, oropharynx moist, no oral exudates, nose normal. [] Eyes: PERRLA, EOMI, conjunctiva normal, no discharge. [] Neck: Normal range of motion, no tenderness, supple, no stridor. [] Cardiovascular:Heart rate regular rhythm, no murmur , S1, S2, rubs or gallops. [ ] Lungs & Thorax: Bilateral breath sounds clear to auscultation , no wheezing, rhonchi, rales. No chest or crepitus or tenderness. [] Abdomen: Bowel sounds normal, soft, no tenderness, no masses, no rebound, rigidity, no guarding, no pulsatile masses. [] Skin: Warm, dry, no erythema, no rash. [] Back: No tenderness, no CVA tenderness. [] Extremities: Patient with well-healed surgical incision with scarring over the anterior portion of the left knee, consistent with total arthroplasty, there is no erythema, no streaking, patient is able to bend the knee although he complains of pain, no evidence of acute injury identified no cyanosis, no clubbing, ROM intact, no edema. [] Neurologic: Alert and oriented X 3, normal motor function, normal sensory function, no focal deficits noted. [] Psychologic: Affect normal, judgement normal, mood normal. [] Current Patient Data Vital Signs Vital Signs Date Time Temp Pulse Resp B/P (MAP) Pulse Ox O2 Delivery O2 Flow Rate FiO2 11/05/16 08:30 97.8 124 22 95 Room Air 97.8 EKG EKG Not indicated. Radiology/Procedures Radiology/Procedures [][facility] [address] [place] [address] IMAGING REPORT Signed PATIENT: LEONEL GODWIN ACCOUNT: [id number] : 1965 LOCATION: ER AGE: 51 SEX: M EXAM STATUS: REG ER ORD. PHYSICIAN: TONY HOWARD DO REASON: knee pain PROCEDURE: KNEE LEFT 3V Indication fall. Pain. AP and lateral views of the left knee were obtained. A total of 4 films were obtained. There is a total knee prosthesis. Long stem femoral and tibial components are noted. No fracture or acute bony finding is seen. DICTATED and SIGNED BY: MARIANELA COOPER MD DATE: 11/03/16 145 CC: TONY HOWARD DO; ZECHARIAH MARCUM MD ~ Course & Med Decision Making Course & Med Decision Making Pertinent Labs and Imaging studies reviewed. (See chart for details) Patient denies any new or different symptoms, states that his pain has been persistent, the patient has chronic pain in the lower extremity, and has been seen position multiple times. As he is denying any new trauma, and the previous x-rays reviewed do not show any evidence of acutely concerning findings, no indication for additional imaging at this time. Patient with no swelling of the calf or pain anywhere aside from the anterior portion of the knee with flexion, as he states he is not previously received a knee immobilizer but is having pain with motion, and is in crutch walking without issue, patient was fitted with a knee stabilizer in the emergency department, along with a Percocet, due to his allergy to anti-inflammatory medications. Knee immobilizer placed without issue in the emergency department, patient states that he is feeling much more supported with the immobilizer in place. Patient is ambulating on the crutches slowly but steadily, and states that he is comfortable using the crutches. He states he feels ready to go home, is feeling better after the Percocet with immobilizer in place. Discussed use immobilizer with activity, and keeping the immobilizer off at rest, importance of following up with orthopedics. Patient instructed to contact her [facility] of orthopedics to arrange for follow-up, and to see what options are available concerning his chronic knee pain. We also discussed concerning symptoms that prompt return to the ED. Patient voiced understanding and agreement, was requesting a cab voucher back to the [employer], which was arranged for him by nurse Isha. Patient discharged home in stable condition with plan as above. Dragon Disclaimer Dragon Disclaimer This electronic medical record was generated, in whole or in part, using a voice recognition dictation system. Departure Impression: Primary Impression: Chronic leg pain Disposition: HOME, SELF-CARE Condition: IMPROVED SHARYN SOTO DO Nov 05, 2016 09:17
== END 2016-11-05 11:31 | disposition home or self-care (01) ==
LOC: ER 08:29
DX: G89.29 Other chronic pain (principal); M25.562 Pain in left knee; R00.0 Tachycardia, unspecified; E11.9 Type 2 diabetes mellitus without complications; F32.9 Major depressive disorder, single episode, unspecified; I10 Essential (primary) hypertension; F43.10 Post-traumatic stress disorder, unspecified; J44.9 Chronic obstructive pulmonary disease, unspecified; I25.10 Atherosclerotic heart disease of native coronary artery without angina pectoris; I25.2 Old myocardial infarction; F15.10 Other stimulant abuse, uncomplicated; E11.40 Type 2 diabetes mellitus with diabetic neuropathy, unspecified; Z87.820 Personal history of traumatic brain injury; Z90.49 Acquired absence of other specified parts of digestive tract; Z96.659 Presence of unspecified artificial knee joint; Z88.2 Allergy status to sulfonamides; Z86.718 Personal history of other venous thrombosis and embolism; Z91.041 Radiographic dye allergy status; Z88.8 Allergy status to other drugs, medicaments and biological substances
CPT/HCPCS: 29505; 99283-25

== ENCOUNTER 2016-11-09 07:20 | Emergency (ER) | payer OTHER ==
[~2016-11-09] VITALS: Ht 182.9 cm; Wt 163.3 kg
--- NOTE | 2016-11-09 07:55 | PHYS DOC ---
Past Medical History Past Medical History: Anxiety, CAD, COPD, Depression, Diabetes-Type II, DVT, Hypertension, Kidney Infection, [place], Seizure, Vascular Disease Additional Past Medical Histor: TBI; PTSD; neuropathy, SI attempts in past, meth abuse, UMBILICAL HERNIA Past Surgical History: Cholecystectomy, Knee Replacement, Tonsillectomy, Other Additional Past Surgical Histo: hernia, left knee Alcohol Use: Sober Drug Use: Methamphetamine Social History Narrative: clean x 80 days Adult General Chief Complaint Chief Complaint: LOWER EXT PAIN HPI HPI Patient is a 51 year old male who presents by EMS for continued left knee pain and now with progressive onset of swelling since fall 1 week ago. He has a negative xray at the time of injury. He was seen a second time for this as well and provided a knee immobilizer and crutches; he ambulated with this. He has not been wearing it since, but he is intermittently using ice and tylenol. He has orthopedics clinic follow up in 5 days. He was recommended to return here by staff at his facility. He denies f/c, myalgia, fatigue, rash, numbness , tingling, weakness, n/v. Review of Systems Review of Systems Constitutional: Denies fever or chills [] Eyes: Denies change in visual acuity, redness, or eye pain [] HENT: Denies nasal congestion or sore throat [] Respiratory: Denies cough or shortness of breath [] Cardiovascular: No additional information not addressed in HPI [] GI: Denies abdominal pain, nausea, vomiting, bloody stools or diarrhea [] : Denies dysuria or hematuria [] Musculoskeletal: Denies back pain or joint pain [] Integument: Denies rash or skin lesions [] Neurologic: Denies headache, focal weakness or sensory changes [] Endocrine: Denies polyuria or polydipsia [] Current Medications Current Medications Current Medications Medications (Trade) Dose Ordered Sig/Krys Start Time Stop Time Status Last Admin Dose Admin Oxycodone/ Acetaminophen (Percocet 5/325) 1 tab 1X ONCE 11/09/16 08:00 11/09/16 08:01 DC 11/09/16 08:06 1 TAB Allergies Allergies Allergies Coded Allergies Type Severity Reaction Last Updated Verified Sulfa (Sulfonamide Antibiotics) Allergy Severe sob 03/18/16 Yes ketorolac tromethamine Allergy Intermediate hives 03/18/16 Yes I S O L A T I O N *CONTACT* Allergy Unknown 09/12/16 Yes Physical Exam Physical Exam Constitutional: Well developed, well nourished, no acute distress, non-toxic appearance. [] HENT: Normocephalic, atraumatic, bilateral external ears normal, oropharynx moist, nose normal. [] Eyes: PERRLA, EOMI. [] Neck: Normal range of motion, supple. [] Cardiovascular:Heart rate regular rhythm [] Lungs & Thorax: Bilateral breath sounds clear to auscultation [] Abdomen: Bowel sounds normal, soft, no tenderness. [] Skin: Warm, dry, no erythema, no rash. [] Back: Normal ROM. [] Extremities: LLE with anterior swelling and rubor compared to right; some palpable effusion; wearing compressive dressings to lower legs; Able to flex/ex hip, knee rom intact with pain, ankle df/pf, toes df/pf; SILT grossly; dp pulses equal bilaterally Neurologic: Alert and oriented X 3, normal motor function, normal sensory function, no focal deficits noted. [] Psychologic: Affect normal, judgement normal, mood normal. [] Current Patient Data Vital Signs Vital Signs Date Time Temp Pulse Resp B/P (MAP) Pulse Ox O2 Delivery O2 Flow Rate FiO2 11/09/16 07:24 98.1 99 20 125/53 (77) 96 Room Air 98.1 Radiology/Procedures Radiology/Procedures Left knee x-ray as interpreted by me with no acute fracture or dislocation, intact hardware, joint effusion present Course & Med Decision Making Course & Med Decision Making Pertinent Labs and Imaging studies reviewed. (See chart for details) Discussed importance of following up with orthopedics and his primary care doctor for further management. Encouraged use of knee immobilizer and crutches. Return precautions given. He understands and agrees with plan. Dragon Disclaimer Dragon Disclaimer This electronic medical record was generated, in whole or in part, using a voice recognition dictation system. Departure Departure Impression: Primary Impression: Left knee pain Disposition: 01 HOME, SELF-CARE Condition: STABLE Referrals: ZECHARIAH MARCUM MD (PCP) Patient Instructions: Knee Pain, [id number] Additional Instructions: Follow-up with your primary care doctor and orthopedics clinic. Continue using ice, crutches and knee immobilizer. Return for any concerns. Problem Qualifiers Primary Impression: Left knee pain Chronicity: acute Qualified Codes: M25.562 - Pain in left knee Swapnil TESFAYE MD Nov 09, 2016 07:55
[2016-11-09] MEDS ORDERED: oxyCODONE/APAP 5/325 1 TAB TABLET PO ONE (08:00)
--- NOTE | 2016-11-09 08:38 | RAD ---
Indication persistent pain associated with a fall one week previously. AP oblique and lateral views of the left knee were obtained. Note is made of the plain film examination 6 days ago Total knee prosthesis is noted. The entire stem of the tibial component is not included on the images obtained. There is soft tissue swelling. There is a knee joint effusion. An acute bony finding is not seen.
[2016-11-09 09:40] VITALS: BP 128/61
== END 2016-11-09 10:07 | disposition home or self-care (01) ==
LOC: ER 07:20
DX: M25.562 Pain in left knee (principal); I10 Essential (primary) hypertension; I25.10 Atherosclerotic heart disease of native coronary artery without angina pectoris; J44.9 Chronic obstructive pulmonary disease, unspecified; E11.9 Type 2 diabetes mellitus without complications; F43.10 Post-traumatic stress disorder, unspecified; E11.40 Type 2 diabetes mellitus with diabetic neuropathy, unspecified; I25.2 Old myocardial infarction; F15.10 Other stimulant abuse, uncomplicated; Z91.5 Personal history of self-harm; Z86.718 Personal history of other venous thrombosis and embolism; Z88.2 Allergy status to sulfonamides; Z88.8 Allergy status to other drugs, medicaments and biological substances; Z91.041 Radiographic dye allergy status
CPT/HCPCS: 73562; 99284

== ENCOUNTER → 2016-11-09 | Outpatient (CLI) | payer OTHER ==
[2016-11-09 09:40] VITALS: BP 128/61
== END | disposition home or self-care (01) ==
LOC: PMGWOUND 10:20
PROVIDERS: ATTEND Preventive Medicine Undersea and Hyperbaric Medicine
DX: I87.313 Chronic venous hypertension (idiopathic) with ulcer of bilateral lower extremity (principal); L97.821 Non-pressure chronic ulcer of other part of left lower leg limited to breakdown of skin; L97.811 Non-pressure chronic ulcer of other part of right lower leg limited to breakdown of skin; J44.9 Chronic obstructive pulmonary disease, unspecified; F41.9 Anxiety disorder, unspecified; F32.9 Major depressive disorder, single episode, unspecified; E66.01 Morbid (severe) obesity due to excess calories; Z68.42 Body mass index [BMI] 45.0-49.9, adult; I25.2 Old myocardial infarction; F15.10 Other stimulant abuse, uncomplicated; E11.21 Type 2 diabetes mellitus with diabetic nephropathy; E11.40 Type 2 diabetes mellitus with diabetic neuropathy, unspecified; E78.5 Hyperlipidemia, unspecified; I11.0 Hypertensive heart disease with heart failure; I50.9 Heart failure, unspecified; F17.210 Nicotine dependence, cigarettes, uncomplicated; Z86.718 Personal history of other venous thrombosis and embolism; Z86.73 Personal history of transient ischemic attack (TIA), and cerebral infarction without residual deficits
CPT/HCPCS: 29581